=== PATIENT | male | born 1935 | race Caucasian/White ===

== ENCOUNTER 2017-06-14 09:04 | Day surgery (SDC) | payer MEDICARE ==
[~2017-06-14 09:04] MED LIST: Acetaminophen TAB* 325 MG PO PRN; Buffered Lidocaine 0.9% SYRIN* 5 ML/SYR SYRINGE INTRADERM ONE
[2017-06-14] MEDS ORDERED: Cyclopentolate 1% OPTH.SOL* 2 ML BTL ONE (09:07)
[2017-06-14] MEDS ORDERED: Neomycin/Polymy/Dex OPTH.SUSP* MAXITROL 0.1% 5 ML ONE (09:07)
[2017-06-14] MEDS ORDERED: Phenylephrine 2.5% OPTH.SOL* 2 ML BTL ONE (09:07)
[2017-06-14] MEDS ORDERED: Buffered Lidocaine 0.9% SYRIN* 5 ML/SYR SYRINGE ONE (09:07)
[2017-06-14] MEDS ORDERED: Lidocaine 1% MPF* 2 ML VIAL ONE (09:07)
[2017-06-14] MEDS ORDERED: Proparacaine 0.5% OPHTH.SOL* 15 ML BTL ONE (09:07)
[2017-06-14] MEDS ORDERED: acetaZOLAMIDE TAB* 250 MG ONE (09:07)
[2017-06-14] MEDS ORDERED: Povidone Iodine 5% OPTH* 30 ML BTL ONE (09:07)
[2017-06-14] MEDS ORDERED: fentaNYL* 50 MCG/ML 2 ML VIAL (100 MCG VIAL) ONE (10:39)
[2017-06-14] MEDS ORDERED: Midazolam* 1 MG/ML 2 ML VIAL (2 MG) ONE (10:39)
[2017-06-14 11:41] VITALS: BP 159/53
--- NOTE | 2017-06-14 12:01 | OP ---
DATE OF OPERATION: 06/14/2017. DATE OF : 1935. SURGEON: Tarik Sneed M.D. PREOPERATIVE DIAGNOSIS: Cataract right eye. POSTOPERATIVE DIAGNOSIS: Cataract right eye. OPERATIVE PROCEDURE: Phacoemulsification right eye with IOL. PROCEDURE: The patient was brought to the operating room after being given 1/2% Alcaine with epinep hrine drops in the preoperative area. The eye was prepped and draped in the usual sterile fashion. Sterile drape and eyelid speculum were placed. Again, topical 1/2% Alcaine with epinephrine was gi dinora. A paracentesis incision was made at the 9 o'clock position with the No.75 blade. Clear cornea incision 2.2 x 2.2-mm was created at the 12 o'clock position starting at the anterior limbus using the 2.2-mm keratome. The anterior chamber was irrigated with 0.4 mL of 1% non-preservative intracam eral lidocaine and filled with DisCoVisc. A capsulorrhexis was completed using the cystotome and ilana e Utrata forceps. Hydrodissection was performed with balanced salt solution. The lens nucleus was r emoved with the Phacoemulsification handpiece without incident. Cortex was removed with the irrigat ion-aspiration handpiece. The capsular bag was re-inflated using DisCoVisc and an [id number] implant was inserted with the shooter. The irrigation-aspiration handpiece was used to remove all residual DisCoVisc. The eye was refilled with balanced salt solution and the wound checked and found to be watertight. Topical Maxitrol drops were given. [id number]/[facility] #: [id number]
== END 2017-06-14 11:53 | disposition home or self-care (01) ==
LOC: OREAST 09:04
PROVIDERS: ATTEND Specialist
DX: H25.811 Combined forms of age-related cataract, right eye (principal); J45.909 Unspecified asthma, uncomplicated
CPT/HCPCS: A9270-GY; J2250; J3010; V2632

== ENCOUNTER 2017-07-05 11:00 | Day surgery (SDC) | payer MEDICARE ==
[~2017-07-05 11:00] MED LIST changes: +Buffered Lidocaine 0.9% SYRIN* 5 ML/SYR SYRINGE ONE; +Cyclopentolate 1% OPTH.SOL* 2 ML BTL ONE; +Flurbiprofen 0.03% OPTH.SOL* 2.5 ML BTL ONE; +Lidocaine 1% MPF* 2 ML VIAL ONE; +Lidocaine 2% EPI 1:200000 MPF* 20 ML VIAL ONE; +Neomycin/Polymy/Dex OPTH.SUSP* MAXITROL 0.1% 5 ML ONE; +Phenylephrine 2.5% OPTH.SOL* 2 ML BTL ONE; +Povidone Iodine 5% OPTH* 30 ML BTL ONE; +Proparacaine 0.5% OPHTH.SOL* 15 ML BTL ONE; +acetaZOLAMIDE TAB* 250 MG ONE
[2017-07-05] MEDS ORDERED: Midazolam* 1 MG/ML 2 ML VIAL (2 MG) ONE (12:36)
[2017-07-05 13:59] VITALS: BP 186/86
--- NOTE | 2017-07-05 14:38 | OP ---
DATE OF OPERATION: 07/05/2017 - MERGED WITH [facility] DATE OF : 1935. SURGEON: Tarik Sneed M.D. PREOPERATIVE DIAGNOSIS: Cataract left eye. POSTOPERATIVE DIAGNOSIS: Cataract left eye. OPERATIVE PROCEDURE: Phacoemulsification left eye with IOL. DESCRIPTION OF PROCEDURE: The patient was brought to the operating room after being given 1/2% Alcaine with epinephrine drops in the preoperative area. The eye was prepped and draped in the usual sterile fashion. Sterile drape and eyelid speculum were placed. Again, topical 1/2% Alcaine with epinephrine was given. A paracentesis incision was made at the 3 o'clock position with the No.75 blade. Clear cornea incision 2.2 x 2.2-mm was created at the 6 o'clock position starting at the anterior limbus using the 2.2-mm keratome. The anterior chamber was irrigated with 0.4 mL of 1% non-preservative intracameral lidocaine and filled with DisCoVisc. A capsulorrhexis was completed using the cystotome and the Utrata forceps. Hydrodissection was performed with balanced salt solution. The lens nucleus was removed with the Phacoemulsification handpiece without incident. Cortex was removed with the irrigation-aspiration handpiece. The capsular bag was re-inflated using DisCoVisc and an [id number] implant was inserted with the shooter. The irrigation-aspiration handpiece was used to remove all residual DisCoVisc. The eye was refilled with balanced salt solution and the wound checked and found to be watertight. Topical Maxitrol drops were given. [id number]/[facility] #: [id number] [facility]
== END 2017-07-05 14:00 | disposition home or self-care (01) ==
LOC: OREAST 11:00
PROVIDERS: ATTEND Specialist
DX: H26.9 Unspecified cataract (principal)
CPT/HCPCS: A9270-GY; J2250; V2632

== ENCOUNTER 2018-01-12 21:15 | Emergency (ER) | payer MEDICARE ==
[2018-01-12 21:30] VITALS: BP 151/84
--- NOTE | 2018-01-12 21:43 | UC ---
UC General HPI - History of Current Complaint Chief Complaint: UCGI Stated Complaint: CONSTIPATION Time Seen by Provider: 01/12/18 21:42 Pain Intensity: 0 - Allergy/Home Medications Allergies/Adverse Reactions: Allergies Allergy/AdvReac Type Severity Reaction Status Date / Time Adhesive Tape Allergy Rash Verified 01/12/18 21:32 amlodipine Allergy Rash Verified 01/12/18 21:32 ciprofloxacin [From Cipro] Allergy Agitation Verified 01/12/18 21:32 sulfamethoxazole Allergy Rash Verified 01/12/18 21:32 [From Bactrim] trimethoprim [From Bactrim] Allergy Rash Verified 01/12/18 21:32 Hay Fever Allergy Congestion Uncoded 01/12/18 21:32 statins Allergy Muscle Ache Uncoded 01/12/18 21:32 PMH/Surg Hx/FS Hx/Imm Hx - Surgical History Surgical History: Yes Surgery Procedure, Year, and Place: UMBILICAL HERNIA REPAIR - Family History Known Family History: Positive: Hypertension - Social History Alcohol Use: Occasionally Alcohol Amount: 1-2 drinks a week Substance Use Type: None Smoking Status (MU): Never Smoked Tobacco - Immunization History Most Recent Influenza Vaccination: 2014 Physical Exam Vital Signs: Initial Vital Signs Temp 98.3 F 01/12/18 21:26 Pulse 73 01/12/18 21:26 Resp 12 01/12/18 21:26 BP 151/84 01/12/18 21:26 Pulse Ox 100 01/12/18 21:26 Discharge - Discharge Plan Referrals: Tyrone Messina MD [Primary Care Provider] -
--- NOTE | 2018-01-12 22:20 | UC ---
Manuel Pascual Nikita, scribed for Ej Sandoval MD on 01/12/18 at 2211 . Abdominal Pain Male HPI - HPI Summary HPI Summary: This patient is an 82 year old M presenting to [facility] with a chief complaint of constipation and abdominal pain since 3 days ago. However, the patient has been having diarrhea and flatulence every few days since 1.5 months ago. 8 days ago, the patient had pain (7/10) with burping and flatulence at night and in the morning had diarrhea. Days after, he had constipation. The CC is described as a watery and mildly explosive diarrhea. The patient rates the pain 7/10 in severity at its worst. Symptoms aggravated by nothing. Symptoms alleviated by nothing. Patient reports he has been having a normal diet. Patient reports nausea. Patient denies vomiting and fever. Patient reports he is not overdue on his colonoscopy. - History of Current Complaint Chief Complaint: UCGI Stated Complaint: CONSTIPATION Time Seen by Provider: 01/12/18 21:42 Hx Obtained From: Patient Onset/Duration: Sudden Onset, Lasting Days, Still Present Severity Initially: Severe Pain Intensity: 7 Pain Scale Used: 0-10 Numeric Aggravating Factor(s): Nothing Alleviating Factor(s): Nothing Associated Signs And Symptoms: Positive: Other - Patient reports he has been having a normal diet. Patient reports nausea. Patient denies vomiting and fever. - Allergies/Home Medications Allergies/Adverse Reactions: Allergies Allergy/AdvReac Type Severity Reaction Status Date / Time Adhesive Tape Allergy Rash Verified 01/12/18 21:32 amlodipine Allergy Rash Verified 01/12/18 21:32 ciprofloxacin [From Cipro] Allergy Agitation Verified 01/12/18 21:32 sulfamethoxazole Allergy Rash Verified 01/12/18 21:32 [From Bactrim] trimethoprim [From Bactrim] Allergy Rash Verified 01/12/18 21:32 Hay Fever Allergy Congestion Uncoded 01/12/18 21:32 statins Allergy Muscle Ache Uncoded 01/12/18 21:32 PMH/Surg Hx/FS Hx/Imm Hx Cardiovascular History: Hypertension Respiratory History: Asthma - Surgical History Surgical History: Yes Surgery Procedure, Year, and Place: UMBILICAL HERNIA REPAIR - Family History Known Family History: Positive: Hypertension - Social History Alcohol Use: Occasionally Alcohol Amount: 1-2 drinks a week Substance Use Type: None Smoking Status (MU): Never Smoked Tobacco - Immunization History Most Recent Influenza Vaccination: 2014 Review of Systems Constitutional: Other - denies fever Gastrointestinal: Abdominal Pain, Diarrhea, Nausea, Other - constipation; denies vomiting All Other Systems Reviewed And Are Negative: Yes Physical Exam - Summary Physical Exam Summary: VITAL SIGNS: Reviewed. GENERAL: ~Patient is a well-developed and nourished MALE who is lying comfortable in the stretcher. ~Patient is not in any acute respiratory distress. HEAD AND FACE: Normocephalic EYES: PERRLA, EOMI x 2. EARS: Hearing grossly intact. MOUTH: Oropharynx within normal limits. NECK: Supple, trachea is midline, no adenopathy, no JVD, no carotid bruit. CHEST: Symmetric, no tenderness at palpation LUNGS: Clear to auscultation bilaterally. No wheezing or crackles. CVS: Regular rate and rhythm, S1 and S2 present, no murmurs or gallops appreciated. ABDOMEN: Soft, non-tender. Bowel sounds are normal. No abdominal abnormal pulsations. EXTREMITIES: Full ROM in all major joints, no edema, no cyanosis or clubbing. NEURO: Alert and oriented x 3. No acute neurological deficits. Speech is normal and follows commands. SKIN: Dry and warm Triage Information Reviewed: Yes Vital Signs: Initial Vital Signs Temp 98.3 F 01/12/18 21:26 Pulse 73 01/12/18 21:26 Resp 12 01/12/18 21:26 BP 151/84 01/12/18 21:26 Pulse Ox 100 01/12/18 21:26 Abd Pain Male Course/Dx - Course Course Of Treatment: The patient was found to have increased BP in UC. The patient will follow up with PCP for better control of BP. I discussed all the findings and test results with the patient. Patient was instructed to return to the urgent care or go to ER immediately if any of the symptoms return or worsens. Plan of care was discussed with the patient, and patient understands and agrees. All questions were answered to patient satisfaction. There were no further complaints or concerns. - Differential Dx/Clinical Impression Differential Diagnosis/HQI/PQRI: Other - diarrhea and nausea Provider Diagnoses: diarrhea and nausea Discharge - Sign-Out/Discharge Documenting (check all that apply): Discharge - Discharge Plan Condition: Stable Disposition: HOME Referrals: Tyrone Messina MD [Primary Care Provider] - Additional Instructions: FOLLOW UP WITH YOUR PRIMARY CARE PROVIDER WITHIN ONE WEEK FOR HIGH BLOOD PRESSURE NOTED TODAY. RETURN TO URGENT CARE OR THE ED FOR ANY WORSENING OR NEW SYMPTOMS. The documentation as recorded by the Manuel villalobos Nikita accurately reflects the service I personally performed and the decisions made by , Ej Sandoval MD.
[2018-01-13 14:32] LABS: ABS Basophils 0 10^3/ul (0-0.2); ABS Eosinophils 0.2 10^3/ul (0-0.6); ABS Lymphocytes 2.1 10^3/ul (1.0-4.8); ABS Monocytes 0.6 10^3/ul (0-0.8); ABS Neutrophils 3.2 10^3/ul (1.5-7.7); ABS Nucleated RBC 0 10^3/ul; Eosinophil % 3.1 % (0-6); Hematocrit 41 % (42-52); Hemoglobin 13.9 g/dl (14.0-18.0); Lymphocyte % 33.8 % (25-47); Mean Corpuscular HGB Conc 34 g/dl (31-36); Mean Corpuscular Hemoglobin 32 pg (27-31); Mean Corpuscular Volume 95 fL (80-94); Mean Platelet Volume 8.9 um3 (7.4-10.4); Nucleated Red Blood Cells % 0.4; Platelet Count 263 10^3/ul (150-450); Red Blood Count 4.28 10^6/ul (4.0-5.4); Red Cell Distribution Width 14 % (10.5-15); White Blood Count 6.1 10^3/ul (3.5-10.8)
[2018-01-13 14:50] LABS: EGFR Non-African American 92.8 (>60)
--- NOTE | 2018-01-13 16:44 | UC ---
- Progress Note Progress Note: Please call patient and assure all symptoms have resolved---if not please go to emergency room for evaluation of abdomen pain Discharge - Sign-Out/Discharge Documenting (check all that apply): Post-Discharge Follow Up - Discharge Plan Condition: Stable Disposition: HOME Prescriptions: Omeprazole CAP* [Prilosec CAP* 20 MG] 20 mg PO BID #30 cap. Ondansetron TAB* [Zofran 4 MG Tab*] 4 mg PO Q6H PRN #12 tab PRN Reason: Nausea Patient Education Materials: Acute Diarrhea (ED) Referrals: Tyrone Messina MD [Primary Care Provider] - Additional Instructions: FOLLOW UP WITH YOUR PRIMARY CARE PROVIDER WITHIN ONE WEEK FOR HIGH BLOOD PRESSURE NOTED TODAY. RETURN TO URGENT CARE OR THE ED FOR ANY WORSENING OR NEW SYMPTOMS. - Billing Disposition and Condition Condition: STABLE Disposition: HOME
== END 2018-01-12 22:35 | disposition home or self-care (01) ==
LOC: UCEAST 21:15
DX: R19.7 Diarrhea, unspecified (principal); R11.0 Nausea; K59.00 Constipation, unspecified; I10 Essential (primary) hypertension; J45.909 Unspecified asthma, uncomplicated; Z88.1 Allergy status to other antibiotic agents; Z88.2 Allergy status to sulfonamides; Z91.048 Other nonmedicinal substance allergy status
CPT/HCPCS: 36415; 80053; 85025; 86140; 99212; G0463

== ENCOUNTER 2019-02-05 16:11 | Emergency (ER) | payer MEDICARE ==
[2019-02-05 16:43] VITALS: BP 157/65
--- NOTE | 2019-02-05 16:57 | UC ---
Respiratory Complaint HPI - HPI Summary HPI Summary: 83 yo male presents with fatigue and slight dry cough for the last 3 weeks. 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 Pt states his symptoms have not changed. He tried to get an appt with his squad sergeant, but he cannot see him for some time. 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 He denies fever, chills, sinus symptoms, sore throat, SOB, chest pain, abdominal pain, n/v, or rash. No recent weight loss or gain. - History of Current Complaint Chief Complaint: UCRespiratory Stated Complaint: RESP COMPLAINT Time Seen by Provider: 02/05/19 16:56 Onset/Duration: Gradual Onset Severity Initially: Mild Severity Currently: Mild Pain Intensity: 2 Pain Scale Used: 0-10 Numeric Character: Cough: Nonproductive - Allergies/Home Medications Allergies/Adverse Reactions: Allergies Allergy/AdvReac Type Severity Reaction Status Date / Time Adhesive Tape Allergy Rash Verified 02/05/19 16:43 amlodipine Allergy Rash Verified 02/05/19 16:43 ciprofloxacin [From Cipro] Allergy Agitation Verified 02/05/19 16:43 latex Allergy Rash Verified 02/05/19 16:43 sulfamethoxazole Allergy Rash Verified 02/05/19 16:43 [From Bactrim] trimethoprim [From Bactrim] Allergy Rash Verified 02/05/19 16:43 Hay Fever Allergy Congestion Uncoded 02/05/19 16:43 statins Allergy Muscle Ache Uncoded 02/05/19 16:43 Home Medications: Home Medications Albuterol inh POWDER (NF) [Proair Respiclick] 108 mcg IN 02/05/19 [History] Budesonide Flexhaler 180 (NF) [Pulmicort Flexhaler 180 mcg/act (NF)] 180 mcg IN 02/05/19 [History] Hydrocodone/Acetaminophen [[place] 10-325 Tablet] 1 each PO 02/05/19 [History] PMH/Surg Hx/FS Hx/Imm Hx Respiratory History: Asthma - Surgical History Surgical History: Yes Surgery Procedure, Year, and Place[place] [facility] [place] - Family History Known Family History: Positive: Hypertension - Social History Lives: With Family Alcohol Use: Weekly Alcohol Amount: 1-2 drinks a week Substance Use Type: None Smoking Status (MU): Never Smoked Tobacco - Immunization History Most Recent Influenza Vaccination: 2014 Review of Systems All Other Systems Reviewed And Are Negative: Yes Constitutional: Positive: Fatigue Skin: Positive: Negative Eyes: Positive: Negative ENT: Positive: Negative Respiratory: Positive: Cough Cardiovascular: Positive: Negative Gastrointestinal: Positive: Negative Genitourinary: Positive: Negative Motor: Positive: Negative Neurovascular: Positive: Negative Musculoskeletal: Positive: Negative Neurological: Positive: Negative Psychological: Positive: Negative Physical Exam - Summary Physical Exam Summary: GENERAL: NAD. WDWN. No pain distress. SKIN: No rashes, sores, lesions, or open wounds. HEENT: Head: AT/NC Eyes: EOM intact. Conjunctiva clear without inflammation or discharge. Ears: Hearing grossly normal. TMs intact, no bulging, erythema, or edema. Nose: Nasal mucosa pink and moist. NTTP maxillary and frontal sinus. Throat: Posterior oropharynx without exudates, erythema, or tonsillar enlargement. Uvula midline. NECK: Supple. Nontender. No lymphadenopathy. CHEST: CTAB. No r/r/w. No accessory muscle use. Breathing comfortably and in no distress. CV: Without m/r/g. Pulses intact. Cap refill <2seconds NEURO: Alert. PSYCH: Age appropriate behavior. Triage Information Reviewed: Yes Vital Signs: Initial Vital Signs Temp 98.7 F 02/05/19 16:30 Pulse 76 02/05/19 16:30 Resp 18 02/05/19 16:30 BP 157/65 02/05/19 16:30 Pulse Ox 98 02/05/19 16:30 Laboratory Tests 02/05/19 17:17 Influenza A (Rapid) Negative Influenza B (Rapid) Negative Vital Signs Reviewed: Yes Respiratory Course/Dx - Course Course Of Treatment: CXR: IMPRESSION: #. No evidence for acute intrathoracic disease. EKbpm Sinus vicente with one APC. No ST changes as read by Dr. Rowan POC flu negative. At this time, I am unsure the cause of his symptoms. At pt's request, will draw for CBC, CMP, TSH, Vitamin D, and Vitamin B12. He wishes for these lab results to be forwarded to his PCP for review at their next appointment. - Differential Dx/Diagnosis Provider Diagnosis: Fatigue Discharge - Sign-Out/Discharge Documenting (check all that apply): Patient Departure All imaging exams completed and their final reports reviewed: Yes - Discharge Plan Condition: Stable Disposition: HOME Patient Education Materials: Fatigue (ED) Referrals: Tyrone Messina MD [Primary Care Provider] - As Soon As Possible Additional Instructions: If you develop a fever, shortness of breath, chest pain, new or worsening symptoms - please call your PCP or go to the ED. Please schedule a follow up with your Primary Doctor to review lab work and for further evaluation of your symptoms. - Billing Disposition and Condition Condition: STABLE Disposition: Home
[2019-02-05 17:29] LABS: Influenza A Molecular NEGATIVE (Negative); Influenza B Molecular NEGATIVE (Negative)
[2019-02-06 10:54] LABS: ABS Basophils 0 10^3/ul (0-0.2); ABS Eosinophils 0.1 10^3/ul (0-0.6); ABS Lymphocytes 1.5 10^3/ul (1.0-4.8); ABS Monocytes 0.4 10^3/ul (0-0.8); ABS Neutrophils 3.9 10^3/ul (1.5-7.7); ABS Nucleated RBC 0 10^3/ul; Hematocrit 42 % (36-46); Hemoglobin 14.2 g/dL (14.0-18.0); Mean Corpuscular HGB Conc 34 g/dL (31-36); Mean Corpuscular Hemoglobin 32 pg (27-31); Mean Corpuscular Volume 96 fL (80-94); Mean Platelet Volume 8.9 fL (7.4-10.4); Nucleated Red Blood Cells % 0; Platelet Count 304 10^3/uL (150-450); Red Blood Count 4.39 10^6 /uL (4.18-5.48); Red Cell Distribution Width 14 % (10.5-15)
[2019-02-06 10:58] LABS: Albumin 4.3 g/dL (3.2-5.2); Calcium 9.9 mg/dL (8.6-10.3); Potassium 4.4 mmol/L (3.5-5.0); Total Bilirubin 0.9 mg/dL (0.2-1.0)
[2019-02-06 11:04] LABS: BUN/Creatinine Ratio 13.7 (8-20); EGFR African American 124.5 (>60); EGFR Non-African American 102.9 (>60); Globulin 2.2 g/dL (2-4); Total Protein 6.5 g/dL (6.4-8.9)
[2019-02-06 11:22] LABS: TSH (Thyroid Stimulating Horm) 1.38 mcIU/mL (0.34-5.60)
--- NOTE | 2019-02-06 16:47 | UC ---
- Progress Note Progress Note: Lab work form 02/05/2019 reviewed. All labs within normal limits. No change in POC. He should follow up with his primary care provider as previously directed for further evaluation of his symptoms. Course/Dx - Diagnoses Provider Diagnoses: Fatigue Discharge - Sign-Out/Discharge Documenting (check all that apply): Post-Discharge Follow Up All imaging exams completed and their final reports reviewed: Yes - Discharge Plan Condition: Stable Disposition: HOME Patient Education Materials: Fatigue (ED) Referrals: Tyrone Messina MD [Primary Care Provider] - As Soon As Possible Additional Instructions: If you develop a fever, shortness of breath, chest pain, new or worsening symptoms - please call your PCP or go to the ED. Please schedule a follow up with your Primary Doctor to review lab work and for further evaluation of your symptoms. - Billing Disposition and Condition Condition: STABLE Disposition: Home
== END 2019-02-05 18:05 | disposition home or self-care (01) ==
LOC: UCEAST 16:11
DX: R53.83 Other fatigue (principal); R05 Cough; R06.02 Shortness of breath; R00.1 Bradycardia, unspecified; J45.909 Unspecified asthma, uncomplicated; Z88.1 Allergy status to other antibiotic agents; Z91.040 Latex allergy status; Z88.2 Allergy status to sulfonamides; Z88.8 Allergy status to other drugs, medicaments and biological substances; Z91.048 Other nonmedicinal substance allergy status
CPT/HCPCS: 36415; 71046; 80053; 82306; 82607; 84443; 85025; 93005; 99211; G0463

== ENCOUNTER 2019-03-05 15:15 | Observation (INO) | payer MEDICARE ==
--- NOTE | 2019-03-05 15:34 | ED ---
HPI Cardiac - HPI Summary HPI Summary: Patient is a 84 y/o M presenting to ED with complaints of palpitations, chest pain, and diaphoresis. He states that today at around 1330, he was having a phone conversation when he began to feel diaphoretic and experienced palpitations, stating that his pulse felt "irregular". , Carlene, who is present in the room, noted the patient to appear flushed at the time. Patient took his BP three time and states that the highest measurement was 181/111. Afterwards, he began to experience intermittent, mild, mid sternal chest pain. Pain is aggravated with deep breaths, and he notes that he started to burp after chest pain onset. 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 Carlin April 22, 2019. He states that he has been feeling generally fatigued for the past three months, stating that he has been having congestion, URI Sx after going on a trip to [place]. He also makes note of a syncopal episode five days ago and states that the chest congestion finally resolved two days ago. PMHx of HTN, asthma, cataracts. PSHx of bilateral cataracts, umbilical hernia repair. FMHx of HTN. Patient has never smoked tobacco, endorses weekly alcohol usage, denies substance usage. On triage , pain is denied, nothing is ntoed to aggravate/alleviate Sx. Home medications and allergies are reviewed. - History of Current Complaint Stated Complaint: CHEST PAIN HIGH BLOOD PRESSURE PER PT Time Seen by Provider: 03/05/19 15:18 Hx Obtained From: Patient Onset/Duration: Started Hours Ago - chest pain, palpitations, diaphoresis onset 1330 today, Started Days Ago - syncope five days ago, Started Weeks Ago - fatigue, congestion, URI Sx for past three months, resolved two days ago, Resolved - fatigue, congestion, URI Sx for past three months, resolved two days ago; chest pain resolved Timing: Intermittent - chest pain, Lasting Weeks - fatigue, congestion, URI Sx for past three months, resolved two days ago Initial Severity: Mild Current Severity: None Pain Intensity: 0 Pain Scale Used: 0-10 Numeric Chest Pain Location: Mid Sternal Character: Irregular Aggravating Factor(s): Deep Breaths Alleviating Factor(s): Nothing Associated Signs and Symptoms: Positive: Chest Pain, Diaphoresis, Palpitations, Other: - syncope, congestion, fatigue, burping - Allergy/Home Medications Allergies/Adverse Reactions: Allergies Allergy/AdvReac Type Severity Reaction Status Date / Time Adhesive Tape Allergy Rash Verified 02/05/19 16:43 amlodipine Allergy Rash Verified 02/05/19 16:43 ciprofloxacin [From Cipro] Allergy Agitation Verified 02/05/19 16:43 latex Allergy Rash Verified 02/05/19 16:43 sulfamethoxazole Allergy Rash Verified 02/05/19 16:43 [From Bactrim] trimethoprim [From Bactrim] Allergy Rash Verified 02/05/19 16:43 Hay Fever Allergy Congestion Uncoded 02/05/19 16:43 statins Allergy Muscle Ache Uncoded 02/05/19 16:43 Home Medications: Home Medications HYDROcodone/ACETAMIN 5-325 MG* [[place] 5-325 TAB*] 1.5 tab PO BEDTIME 03/05/19 [ History Confirmed 03/05/19] Levalbuterol Tartrate [Levalbuterol Tartrate Hfa] 2 puff INH Q4H PRN 03/05/19 [ History Confirmed 03/05/19] Pumpkin Seed Oil/Saw [place] [Saw [place] 160 mg Softgel] 2 - 3 tab PO DAILY 03/05/19 [History Confirmed 03/05/19] PMH/Surg Hx/FS Hx/Imm Hx Endocrine/Hematology History: Denies: Hx Diabetes Cardiovascular History: Reports: Hx Hypertension - ok now Denies: Hx Pacemaker/ICD, Other Cardiovascular Problems/Disorders Respiratory History: Reports: Hx Asthma - prn inhaler, Denies: Other Respiratory Problems/Disorders GI History: Denies: Other GI Disorders History: Denies: Hx Renal Disease Musculoskeletal History: Denies: Hx Osteoporosis, Other Musculoskeletal History Sensory History: Reports: Hx Cataracts - kady Denies: Hx Contacts or Glasses, Hx Glaucoma, Hx Hearing Aid Opthamlomology History: Reports: Hx Cataracts - kady Denies: Hx Contacts or Glasses, Hx Glaucoma Neurological History: Denies: Other Neuro Impairments/Disorders Psychiatric History: Denies: Hx Panic Disorder - Surgical History Surgery Procedure, Year, and Place: kady [place]acts 2016, [facility] [place] UMBILICAL HERNIA REPAIR Hx Anesthesia Reactions: Yes - mental issues with sedation Infectious Disease History: Denies: Traveled Outside the [place] in Last 30 Days - Family History Known Family History: Positive: Hypertension - Social History Alcohol Use: Weekly Alcohol Amount: 1-2 drinks a week Substance Use Type: Reports: None Smoking Status (MU): Never Smoked Tobacco Review of Systems Constitutional: Other - POSITIVE - CONGESTION, BURPING Positive: Fatigue, Skin Diaphoresis Positive: Palpitations, Chest Pain Positive: Syncope All Other Systems Reviewed And Are Negative: Yes Physical Exam - Summary Physical Exam Summary: Appearance: Well-appearing, Well-nourished, lying in bed comfortably Skin: Warm, dry, no obvious rash Eyes: sclera anicteric, no conjunctival pallor ENT: mucous membranes moist, pharynx appears normal Neck: Supple, nontender Respiratory: Clear to auscultation, no signs of respiratory distress Cardiovascular: Normal S1, S2. No murmurs. Normal distal pulses in tibial and radial bilaterally. Abdomen: Soft, nontender, normal active bowel sounds present Musculoskeletal: Normal, Strength/ROM Intact Neurological: A&Ox3, awake and alert, mentation is normal, speech is fluent and appropriate Psychiatric: affect is normal, does not appear anxious or depressed Triage Information Reviewed: Yes Vital Signs On Initial Exam: Initial Vitals Temp Pulse Resp BP Pulse Ox 98.8 F 79 17 175/86 100 03/05/19 15:24 03/05/19 15:24 03/05/19 15:24 03/05/19 15:24 03/05/19 15:24 Vital Signs Reviewed: Yes Diagnostics - Laboratory Result Diagrams: 03/05/19 15:50 03/05/19 15:50 Lab Statement: Any lab studies that have been ordered have been reviewed, and results considered in the medical decision making process. - Radiology CHEST X-RAY Radiology Interpretation Completed By: Radiologist Summary of Radiographic Findings: IMPRESSION: No active cardiopulmonary disease is noted. THIS REPORT WAS REVIEWED BY DR. ORTEGA. - EKG 1523 Cardiac Rate: NL - RATE OF 80 BPM EKG Rhythm: Sinus Rhythm Summary of EKG Findings: NSR at 80 BPM, P waves, QRS complex, and T waves are within normal limits, T waves and intervals are normal, no ischemic changes. This is a normal EKG. Re-Evaluation - Re-Evaluation First Eval Re-Evaluation Time: 18:00 Comment: Results of labs and tests were discussed with the patient, he is agreeable with admission. Disposition - Course Course Of Treatment: Patient is a 84 y/o M presenting to ED with complaints of palpitations, chest pain, and diaphoresis. He states that today at around 1330, he was having a phone conversation when he began to feel diaphoretic and experienced palpitations, stating that his pulse felt "irregular". reported he appeared flushed. Afterwards, he began to experience intermittent, mild, mid sternal chest pain. Pain is aggravated with deep breaths, and he notes that he started to burp after chest pain onset. He additionally notes a recent syncopal episode, fatigue, and congestion. Physical exam is normal. EKG showed NSR at 80 BPM, P waves, QRS complex, and T waves are within normal limits , T waves and intervals are normal, no ischemic changes. This is a normal EKG. CXR IMPRESSION: No active cardiopulmonary disease is noted. Labs showed Hgb 13.9, Hct 40, MCV 96, MCH 33, MPV 7.3, glucose 170, total protein 6.2, trop 0. UA was negative. Patient's case was discussed with Dr. Lyons, Dr. Lyons accepts for admission. Results of labs and tests were discussed with the patient , he is agreeable with admission. - Diagnoses Provider Diagnoses: Chest pain, Near syncope - Physician Notifications Discussed Care Of Patient With: Rosetta Lyons Time Discussed With Above Provider: 17:50 Instructed by Provider To: Other - Patient's case was discussed with Dr. Lyons , Dr. Lyons accepts for admission. Discharge - Sign-Out/Discharge Documenting (check all that apply): Patient Departure - admit Patient Received Moderate/Deep Sedation with Procedure: No - Discharge Plan Condition: Stable Disposition: ADMITTED TO [facility] - Billing Disposition and Condition Condition: STABLE Disposition: Admitted to [facility] - Attestation Statements Document Initiated by Scribe: Yes Documenting Scribe: CONY MART Provider For Whom Vicente is Documenting (Include Credential): DOREEN ORTEGA MD Scribe Attestation: CONY Pascual, scribed for DOREEN ORTEGA MD on 03/05/19 at 2056. Scribe Documentation Reviewed: Yes Provider Attestation: The documentation as recorded by the CONY villalobos accurately reflects the service I personally performed and the decisions made by DOREEN gray MD Status of Scribe Document: Viewed
[2019-03-05 15:56] LABS: ABS Basophils 0.1 10^3/ul (0-0.2); ABS Eosinophils 0.1 10^3/ul (0-0.6); ABS Monocytes 0.4 10^3/ul (0-0.8); ABS Neutrophils 4.1 10^3/ul (1.5-7.7); Eosinophil % 1.7 %; Hematocrit 40 % (42-52); Hemoglobin 13.9 g/dL (14.0-18.0); Lymphocyte % 29.6 %; Mean Corpuscular HGB Conc 35 g/dL (31-36); Mean Corpuscular Hemoglobin 33 pg (27-31); Mean Corpuscular Volume 96 fL (80-94); Mean Platelet Volume 7.3 fL (7.4-10.4); Nucleated Red Blood Cells % 0.1; Platelet Count 287 10^3/uL (150-450); Red Cell Distribution Width 14 % (10.5-15); White Blood Count 6.7 10^3/uL (3.5-10.8)
[2019-03-05 16:12] LABS: Calcium 9.5 mg/dL (8.6-10.3); Potassium 3.9 mmol/L (3.5-5.0); Total Bilirubin 0.9 mg/dL (0.2-1.0)
[2019-03-05 16:18] LABS: Albumin/Globulin Ratio 1.8 (1-3); BUN/Creatinine Ratio 12.1 (8-20); EGFR African American 96.3 (>60); EGFR Non-African American 79.6 (>60); Globulin 2.2 g/dL (2-4); Total Protein 6.2 g/dL (6.4-8.9)
[2019-03-05 17:39] LABS: Urine Appearance Cloudy; Urine Bilirubin Negative (Negative); Urine Blood Negative (Negative); Urine Color Yellow; Urine Glucose Negative (Negative); Urine Ketones Negative (Negative); Urine Nitrite Negative (Negative); Urine Protein Negative (Negative); Urine Urobilinogen Negative (Negative)
[2019-03-05 19:40] LABS: Folate 4.49 ng/mL (>3.99)
[2019-03-05] MEDS ORDERED: Acetaminophen TAB* 325 MG PO PRN (20:29)
[2019-03-05] MEDS ORDERED: Ondansetron INJ* 2 MG/ML VIAL IV PRN (20:29)
[2019-03-05] MEDS ORDERED: Chlorpheniramine Maleate TAB* 4 MG PO PRN (20:31)
[2019-03-05] MEDS ORDERED: Levalbuterol HFA INHALER* 1 PUFF MDI INH PRN (20:31)
[2019-03-05] MEDS ORDERED: HYDROcodone/ACETAMIN 5-325 MG* 1 TAB PO SCH (21:00)
[2019-03-05] MEDS ORDERED: Enoxaparin(*) 40 MG/0.4 ML SYR SUBCUT SCH (21:00)
--- NOTE | 2019-03-05 22:25 | HP ---
CC: Dr. Santiago; Dr. Carlin * ADMISSION HISTORY AND PHYSICAL: DATE OF ADMISSION: 03/05/19 PRIMARY CARE PROVIDER: Dr. Santiago. HEALTH CARE PROXY: His . CODE STATUS: Full. SOURCE OF INFORMATION: History obtained from interview with the patient and his . RELIABILITY: Good. CHIEF COMPLAINT: Chest discomfort/indigestion and feeling of faintness. HISTORY OF PRESENT ILLNESS: This is an 84-year-old man recently seen by Dr. Santiago on 02/27/19 after presenting with fatigue and cough and weakness, which started approximately 2 months prior to his presentation and began with viral respiratory tract infection, had improved; however, recurred approximately 4 weeks prior after visiting his family who were all sick with viral respiratory infections. He was also seen by Dr. Garcia who had prescribed him cefdinir for sinusitis as well as 2 inhalers Asmanex and a rescue inhaler, which he had not been using since it caused palpitations. He also went to urgent care in the interim and had an EKG that showed PVCs. On the 02/27/19, he reported to Dr. Santiago that he had an episode of near syncope while strolling around his garden and reported at that time he did not lose consciousness and he had taken a nap and felt better. In the interim since on 02/27/19, he was walking with his and again experienced an episode where he fell from a walking path and did not understand how he had done it. They reasoned in retrospect that perhaps he had been feeling faint causing him to miss a step and fall in to the mud, although again no reported syncopal episode, no chest pain or discomfort. Today , while talking on the telephone, he started to experience a sensation and felt "a little faint." About 30 minutes later, he started to feel an "arrhythmia" and according to his looked "flushed." He checked his blood pressure 3 times with a maximum systolic at 180 as well as pressure in his temples as well as a sensation of feeling indigestion. He reported a pain described as "mild discomfort" under his heart that was worse with breathing and decided to come to the emergency room. He reports the sensation of chest discomfort lasted about 20 minutes, but was on and off and only present with deep breathing. He reports that it is still present "a tiny bit." After this sensation of indigestion, he started to belch without improvement. He does note that he was eating after this episode of discomfort and arrhythmia began after talking on the phone. He did not ambulate well after the initiation of this discomfort and still has no association with ambulation. He feels he has been having arrhythmia on and off for at least 3 weeks. At this time, he does still have slight chest discomfort, left sternal wall nonradiating with deep breathing. PAST MEDICAL HISTORY: Includes: 1. Asthma. 2. Cataracts. 3. Umbilical hernia repair. 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 The fistula was at exam under anesthesia, but no surgery. 5. History of high blood pressure improved, diet controlled on a plant based diet. 6. Chronic pain in his back. HOME MEDICATIONS: Include: 1. Chlorpheniramine 2 tabs in the evening as needed. 2. Pumpkin seed oil. 3. Saw palmetto soft gel. 4. Levalbuterol tartrate 2 puffs every 4 hours as needed. 5. [place] 5/325, 1.5 tabs at bedtime. 6. Pulmicort 4 puffs inhaled twice daily. ALLERGIES: ADHESIVE TAPE, AMLODIPINE, CIPROFLOXACIN, LATEX, BACTRIM, TRIMETHOPRIM, hay fever and STATINS. 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 No tobacco. Drinks 1-1/2 glass of wine per evening. He is on a plant based diet and has lost about 20 pounds over the last 2 years. FAMILY HISTORY: Significant for father with hyperlipidemia and mother with breast cancer. REVIEW OF SYSTEMS: As per HPI including fatigue, URI symptoms, sensation of irregular heart rate, high blood pressure, episode of diarrhea 2 months prior. Recent trip to [place] in December. PHYSICAL EXAMINATION GENERAL: A well-appearing man younger than his stated age, sitting up in bed, interactive, pleasant, in no apparent distress. VITAL SIGNS: When seen in the emergency room, systolics ranging from 167 to 190 , diastolic 87 when seen by this author, heart rate 86, respiratory rate is 16. T- max 98.8. HEENT: Oropharynx is clear. He has moist mucous membranes. Sclerae are anicteric. NECK: He has non-elevated JVD. Has no supraclavicular or cervical lymphadenopathy. LUNGS: Clear throughout. HEART: Has regular rate and rhythm. He has slight 2/6 systolic ejection murmur in the right upper sternal border. ABDOMEN: Soft, nontender. EXTREMITIES: Warm and well perfused. He has trace bilateral lower extremity edema equal and bilaterally. NEUROLOGIC: He is alert and oriented x3. His cranial nerves II through XII are intact. No apparent anxiety, agitation, or depression. LABORATORY DATA/DIAGNOSTIC STUDIES: Labs reviewed. Hemoglobin 13.9, white blood cells 6.7, platelets 287. BUN 11, creatinine 0.9, glucose is 170. Troponin I is 0.00 and 0.02. Data reviewed. Chest x-ray, no active cardiopulmonary disease. EKG. Normal sinus rhythm. Normal limit access. Good R-wave progression. One PVC, the last beat in his rhythm strip. Flattening of his T-waves in aVL. ASSESSMENT AND PLAN: This is an 84-year-old man with past medical history of diet- controlled high blood pressure, presenting with constellation of symptoms including several months fatigue, URI symptoms and chest discomfort in the setting of recent episode of near syncope and at least 1 episode potentially 2 occasions in the last several weeks. 1. Chest discomfort. Two negative troponins and a fleeting episode make this an isolation seem nonurgent; however, with one recent episode of near syncope and another episode of questionable near syncope while walking over the weekend , falling off the path, I think this deserves further inpatient workup. First step would be cardiac stress test to rule out ischemia in the setting of chest pain. The patient has identified sensation of arrhythmia and does have PVCs on multiple occasions may account for this. Sensation may benefit from Holter as an outpatient for now. Monitor on telemetry. I do not appreciate any diastolic murmurs or high- grade murmurs that would warrant an urgent echocardiogram. He did travel from [place] several months prior raises a specter of a PE; however, has not had any dyspnea or chest pain other than acute events as described above. For that reason, we will not investigate pulmonary clots, pulmonary embolism further at this time although should remain on the differential. 2. High blood pressure. Suspect worsened in the setting of ER visit. We will monitor after transfer to the floor. If remains elevated, we will restart ramipril, which the patient has tolerated in the past. Elevated glucose, add on Hemoglobin A1c. 3. FEN: The patient is requesting no onions or garlic as well as vegetarian diet when able to eat. 4. DVT prophylaxis: Lovenox. [id number]/[facility] #: [id number] JOSHUA
[2019-03-05] MEDS ORDERED: hydrOXYzine HCL TAB* 25 MG PO ONE (22:37)
[2019-03-05] MEDS: Mometasone 220 MCG MDI INH SCH (23:34)
[2019-03-06] MEDS: Mometasone 220 MCG MDI INH SCH (07:14)
[2019-03-06] MEDS ORDERED: Regadenoson* 0.4 MG/5 ML SYRINGE ONE (09:51)
[2019-03-06 10:14] VITALS: BP 154/65
--- NOTE | 2019-03-06 16:33 | DS ---
CC: Dr. Santiago * DISCHARGE SUMMARY: DATE OF ADMISSION: 03/05/19 DATE OF DISCHARGE: 03/06/19 PRIMARY CARE PROVIDER: Dr. Santiago. SENIOR LINUX ENGINEER: To be established with Dr. Carlin. PRINCIPLE DIAGNOSIS: Syncope/near syncope of unclear cause - negative stress test. SECONDARY DIAGNOSES: 1. Asthma. 2. Chronic back pain. DISCHARGE MEDIATIONS: 1. Chlorpheniramine 2 tablets p.o. q.h.s. p.r.n. 2. Pumpkin seed oil. 3. Saw palmetto soft gel. 4. Xopenex 2 puffs q.4 hours p.r.n. shortness of breath. 5. [place] 5/325 1.5 tablets p.o. q.h.s. 6. Pulmicort 4 puffs inhaled twice daily. 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 Due to the symptoms, the patient was admitted for cardiac evaluation. He was monitored on telemetry overnight. He did develop bradycardia while sleeping. The lowest his heart rate went was 38. He had frequent PACs noted on telemetry; however, the patient did not have any symptoms consistent with what he has had prior. The patient then underwent an exercise nuclear stress test. The patient's stress test did not reveal any fixed or reversible perfusion defects. It is unclear what was causing the patient's symptoms. He felt as though he was an arrhythmia. We did not document anything more significant than PACs or an occasional PVC while in the hospital. I think it would be beneficial to the patient to have an event monitor placed for longer term monitoring where he can correlate this with any symptoms. Unfortunately, the patient needs to be seen by Cardiology before this can be ordered. The patient already has an appointment scheduled with Dr. Carlin for 03/23/19. Unfortunately, I am unable to move that appointment up any sooner. The patient has been instructed to return to the emergency room if he has any recurrent symptoms. PHYSICAL EXAMINATION: On the day of discharge, the patient is awake, alert, oriented, sitting up in the bed, in no acute distress. Cardiac exam reveals a normal S1 and S2 with a regular rate and rhythm. His lungs are are clear. Abdomen is soft, nontender, nondistended. Musculoskeletal: The patient moves all 4 extremities symmetrically. FOLLOWUP CONCERNS: The patient is being discharged home today, 03/06/19. Activity level is as tolerated. Diet is heart-healthy. CONDITION ON DISCHARGE: Stable. TIME SPENT: 35 minutes were spent discharging this patient. [id number]/[facility] #: [id number] MTDD
== END 2019-03-06 13:55 | disposition home or self-care (01) ==
LOC: ED 15:15 → MEDTELE 20:22
PROVIDERS: ADMIT Internal Medicine; ATTEND Hospitalist
DX: R55 Syncope and collapse (principal); J45.909 Unspecified asthma, uncomplicated; M54.9 Dorsalgia, unspecified; I10 Essential (primary) hypertension; R53.83 Other fatigue; R00.2 Palpitations; R07.9 Chest pain, unspecified
CPT/HCPCS: 36415; 71046; 78452; 80053; 81003; 82607; 82746; 83036; 84484; 85025; 85610; 93005; 93017; 99284; A9270-GY; A9502; G0378; J1650; J2785

== ENCOUNTER 2019-04-20 09:47 | Emergency (ER) | payer MEDICARE ==
[2019-04-20 09:57] VITALS: BP 177/76
--- NOTE | 2019-04-20 10:15 | UC ---
UC General HPI - HPI Summary HPI Summary: This patient is a 84-year-old male who presents to the urgent care with chief complaint of itching in his anus. He is be having the symptoms for the last 2 weeks. He has seen his anus urgent and there was no findings. Last night his symptoms worsen therefore he decided to come to the urgent care for further assessment. Patient denies any fever, denies any pain, denies any bleeding. - History of Current Complaint Chief Complaint: UCGU Stated Complaint: PERSONAL Time Seen by Provider: 04/20/19 09:57 Hx Obtained From: Patient Onset/Duration: Gradual Onset Timing: Constant Onset Severity: Mild Current Severity: Moderate Pain Intensity: 8 - Allergy/Home Medications Allergies/Adverse Reactions: Allergies Allergy/AdvReac Type Severity Reaction Status Date / Time Adhesive Tape Allergy Rash Verified 04/20/19 09:55 amlodipine Allergy Rash Verified 04/20/19 09:55 ciprofloxacin [From Cipro] Allergy Agitation Verified 04/20/19 09:55 latex Allergy Rash Verified 04/20/19 09:55 sulfamethoxazole Allergy Rash Verified 04/20/19 09:55 [From Bactrim] trimethoprim [From Bactrim] Allergy Rash Verified 04/20/19 09:55 Hay Fever Allergy Congestion Uncoded 04/20/19 09:55 statins Allergy Muscle Ache Uncoded 04/20/19 09:55 PMH/Surg Hx/FS Hx/Imm Hx Previously Healthy: Yes Cardiovascular History: Hypertension Neurological History: Other - Syncope - Surgical History Surgical History: Yes Surgery Procedure, Year, and Place: kady cataracts 2016, [facility] – [place]. UMBILICAL HERNIA REPAIR - Family History Known Family History: Positive: Hypertension - Social History Alcohol Use: Weekly Alcohol Amount: 1-2 drinks a week Substance Use Type: None Smoking Status (MU): Never Smoked Tobacco - Immunization History Most Recent Influenza Vaccination: 2014 Review of Systems All Other Systems Reviewed And Are Negative: Yes Constitutional: Positive: Negative Skin: Positive: Other - anal itching Eyes: Positive: Negative ENT: Positive: Negative Respiratory: Positive: Negative Cardiovascular: Positive: Negative Gastrointestinal: Positive: Negative Genitourinary: Positive: Negative Motor: Positive: Negative Neurovascular: Positive: Negative Musculoskeletal: Positive: Negative Neurological: Positive: Negative Psychological: Positive: Negative Is Patient Immunocompromised?: No Physical Exam - Summary Physical Exam Summary: VITAL SIGNS: Reviewed. GENERAL: Patient is a well developed and nourished male who is lying comfortable in the stretcher. Patient is not in any acute respiratory distress. HEAD AND FACE: No signs of trauma. No ecchymosis, hematomas or skull depressions. No sinus tenderness. EYES: PERRLA, EOMI x 2, No injected conjunctiva, no nystagmus. EARS: Hearing grossly intact. Ear canals and tympanic membranes are within normal limits. MOUTH: Oropharynx within normal limits. NECK: Supple, trachea is midline, no adenopathy, no JVD, no carotid bruit, no c- spine tenderness, neck with full ROM. CHEST: Symmetric, no tenderness at palpation LUNGS: Clear to auscultation bilaterally. No wheezing or crackles. CVS: Regular rate and rhythm, S1 and S2 present, no murmurs or gallops appreciated. ABDOMEN: Soft, non-tender. No signs of distention. No rebound no guarding, and no masses palpated. Bowel sounds are normal. Rectal exam: Normal sphincter tone, no rashes, no ecchymosis, no lesions, no bleeding. EXTREMITIES: FROM in all major joints, no edema, no cyanosis or clubbing. NEURO: Alert and oriented x 3. No acute neurological deficits. Speech is normal and follows commands. SKIN: Dry and warm Triage Information Reviewed: Yes Appearance: Well-Appearing Vital Signs: Initial Vital Signs Temp 98.3 F 04/20/19 09:50 Pulse 95 04/20/19 09:50 Resp 18 04/20/19 09:50 BP 177/76 04/20/19 09:50 Pulse Ox 99 04/20/19 09:50 Vital Signs Reviewed: Yes Course/Dx - Course Course Of Treatment: The physical exam is found to be within normal limits. At this point I didn't find any etiology for the rectal itching. I would place the patient Seizing. He was strongly recommended to follow-up with his primary care physician and his correctional officer sergeant in the next 2 days for further workup and management. Was also recommended to take Benadryl as needed also given a prescription for Capsasin which is usually prescribed for different causes of a no itching. Visual understands and agrees. - Diagnoses Provider Diagnosis: Anal pruritus Discharge - Sign-Out/Discharge Documenting (check all that apply): Patient Departure All imaging exams completed and their final reports reviewed: No Studies - Discharge Plan Condition: Stable Disposition: HOME Prescriptions: Capsaicin 0.025% CREAM* [Zostrix 0.025% CREAM*] 1 applic TOPICAL TID #1 tube Patient Education Materials: Anal Itching (ED) Referrals: Virginia Santiago MD [Primary Care Provider] - Additional Instructions: Apply medication as indicated. Use Benadryl as needed for itching. Follow-up with his correctional officer sergeant in the primary care physician in the next 2 days. - Billing Disposition and Condition Condition: STABLE Disposition: Home
== END 2019-04-20 10:22 | disposition home or self-care (01) ==
LOC: UCEAST 09:47
DX: L29.0 Pruritus ani (principal); I10 Essential (primary) hypertension; Z88.2 Allergy status to sulfonamides; Z91.040 Latex allergy status
CPT/HCPCS: 99212; G0463

== ENCOUNTER 2019-05-31 22:53 | Observation (INO) | payer MEDICARE ==
[2019-05-31] MEDS ORDERED: Labetalol IV* 5 MG/ML 20 ML VIAL IV PUSH ONE (23:08)
--- NOTE | 2019-05-31 23:13 | ED ---
Neurological HPI - HPI Summary HPI Summary: This patient is an 84 year old male accompanied by his presenting to [facility] with a chief complaint of feeling disoriented since 2 hours ago. The patient states the symptoms started while eating at his mother in laws house. He drove home from the house when the patient told his he said he felt disoriented. He sat with his for an hour and a half and he continued to feel disoriented. He could not remember his recent work. He reports a headache. He denies vomiting. His only medical Hx is HTN. The patient states he began to experience aphasia, saying he felt inarticulate. The patients blood pressure was 213/105 at triage. - History of Current Complaint Chief Complaint: EDAltMentalStatus Stated Complaint: POSS STROKE PER PT Hx Obtained From: Patient Onset/Duration: Started hours ago Current Severity: Mild Seizure Severity: Mild Pain Intensity: 2 Pain Scale Used: 0-10 Numeric - Additional Pertinent History Primary Care Physician: JAQUELIN - Allergy/Home Medications Allergies/Adverse Reactions: Allergies Allergy/AdvReac Type Severity Reaction Status Date / Time Adhesive Tape Allergy Rash Verified 05/31/19 23:22 amlodipine Allergy Rash Verified 05/31/19 23:22 ciprofloxacin [From Cipro] Allergy Agitation Verified 05/31/19 23:22 latex Allergy Rash Verified 05/31/19 23:22 sulfamethoxazole Allergy Rash Verified 05/31/19 23:22 [From Bactrim] trimethoprim [From Bactrim] Allergy Rash Verified 05/31/19 23:22 Hay Fever Allergy Congestion Uncoded 05/31/19 23:22 statins Allergy Muscle Ache Uncoded 05/31/19 23:22 PMH/Surg Hx/FS Hx/Imm Hx Endocrine/Hematology History: Denies: Hx Diabetes Cardiovascular History: Reports: Hx Hypercholesterolemia, Hx Hypertension - ok now Denies: Hx Angina, Hx Coronary Artery Disease, Hx Myocardial Infarction, Hx Pacemaker/ICD, Hx Valvular Heart Disease, Other Cardiovascular Problems/ Disorders Respiratory History: Reports: Hx Asthma - prn inhaler, Denies: Hx Chronic Obstructive Pulmonary Disease (COPD), Other Respiratory Problems/Disorders GI History: Denies: Other GI Disorders History: Denies: Hx Chronic Renal Failure, Hx Renal Disease Musculoskeletal History: Denies: Hx Osteoporosis, Other Musculoskeletal History Sensory History: Reports: Hx Cataracts - kady Denies: Hx Contacts or Glasses, Hx Glaucoma, Hx Hearing Aid Opthamlomology History: Reports: Hx Cataracts - kady Denies: Hx Contacts or Glasses, Hx Glaucoma Neurological History: Denies: Other Neuro Impairments/Disorders Psychiatric History: Denies: Hx Panic Disorder - Surgical History Surgery Procedure, Year, and Place: kady cataracts 2017, [facility] [place]. UMBILICAL HERNIA REPAIR Hx Anesthesia Reactions: Yes - mental issues with sedation Infectious Disease History: No Infectious Disease History: Denies: Hx Clostridium Difficile, Hx Hepatitis, Hx Human Immunodeficiency Virus (HIV), Hx of Known/Suspected MRSA, Hx Shingles, Hx Tuberculosis, History Other Infectious Disease, Traveled Outside the [place] in Last 30 Days - Family History Known Family History: Positive: Hypertension - Social History Alcohol Use: Weekly Alcohol Amount: 1-2 drinks a week Substance Use Type: Reports: None Smoking Status (MU): Never Smoked Tobacco Review of Systems Positive: Other - Elevated BP Neurological: Other - Disoriented, aphasia Positive: Headache All Other Systems Reviewed And Are Negative: Yes Physical Exam - Summary Physical Exam Summary: VITAL SIGNS: Reviewed. GENERAL: Patient is a well-developed and nourished MALE who is lying comfortable in the stretcher. Patient is not in any acute respiratory distress. HEAD AND FACE: No signs of trauma. No ecchymosis, hematomas or skull depressions. No sinus tenderness. EYES: PERRLA, EOMI x 2, No injected conjunctiva, no nystagmus. EARS: Hearing grossly intact. Ear canals and tympanic membranes are within normal limits. MOUTH: Oropharynx within normal limits. NECK: Supple, trachea is midline, no adenopathy, no JVD, no carotid bruit, no c- spine tenderness, neck with full ROM. CHEST: Symmetric, no tenderness at palpation LUNGS: Clear to auscultation bilaterally. No wheezing or crackles. CVS: Regular rate and rhythm, S1 and S2 present, no murmurs or gallops appreciated. ABDOMEN: Soft, non-tender. No signs of distention. No rebound no guarding, and no masses palpated. Bowel sounds are normal. EXTREMITIES: FROM in all major joints, no edema, no cyanosis or clubbing. NEURO: Alert and oriented x 3. No acute neurological deficits. Speech is normal and follows commands. SKIN: Dry and warm Triage Information Reviewed: Yes Vital Signs On Initial Exam: Initial Vitals Temp Pulse Resp BP Pulse Ox 97.6 F 60 18 213/102 98 05/31/19 22:55 05/31/19 22:55 05/31/19 22:55 05/31/19 22:55 05/31/19 22:55 Vital Signs Reviewed: Yes Diagnostics - Vital Signs Vital Signs Temp Pulse Resp BP Pulse Ox 05/31/19 22:55 97.6 F 60 18 213/102 98 - Laboratory Result Diagrams: 06/01/19 00:01 06/01/19 00:01 Lab Statement: Any lab studies that have been ordered have been reviewed, and results considered in the medical decision making process. - CT CTA Head/Neck CT Interpretation Completed By: Radiologist Summary of CT Findings: 1. Atheromatous changes involving both carotid artery shunt. No hemodynamically signifcant anrrowing. No carotid dissection or occlusion. 2. No hemodynmaically significant narrowing of the cervical vertebral arteries. No dissection or occlusion. ED Provider has reviewed this report. Brain CT Interpretation Completed By: Radiologist Summary of CT Findings: No acute intracranial findings. ED Provider has reviewed this report. - EKG 2341 Cardiac Rate: NL - 76 BPM EKG Rhythm: Sinus Rhythm Summary of EKG Findings: Normal axis, normal interval, no ischemic changes. NIH Scale - NIH Scale Level of Consciousness: Alert/Keenly Responsive Ask Patient the Month and His/Her Age: Both Correct Ask Pt to Open/Close Eyes and Engineer Specialist/Release Non-Paretic Hand: Both Correctly Best Gaze (Only Horizontal Eye Movement): Normal Visual Field Testing: No Visual Loss Facial Paresis-Pt to Smile & Close Eyes or Grimace Symmetry: Normal/Symmetrical Motor Function - Right Arm: No Drift-Holds 10 Seconds Motor Function - Left Arm: No Drift-Holds 10 Seconds Motor Function - Right Leg: No Drift-Holds 10 Seconds Motor Function - Left Leg: No Drift-Holds 10 Seconds Limb Ataxia-Must be out of Proportion to Weakness Present: Absent Sensory (Use Pinprick to Test Arms/Legs/Trunk/Face): Normal Best Language (Describe Picture, Name Items): No Aphasia Dysarthria (Read Several Words): Normal Extinction and Inattention: No Abnormality Total Score: 0 Course/Dx - Course Course Of Treatment: This patient is an 84 year old male accompanied by his presenting to [facility] with a chief complaint of feeling disoriented since 2 hours ago. Physical exam was unremarkable for stroke symptoms. CTA head revealed Atheromatous changes involving both carotid artery shunt. The patient' s hypertension was improved. Labs were unremarkable. Dr. Comer, Hospitalist, accepted the patient for admission. This plan was discussed with the patient and he was agreeable with this plan. - Diagnoses Provider Diagnoses: Hypertension, TIA (transient ischemic attack) Discharge - Sign-Out/Discharge Documenting (check all that apply): Patient Departure - Admission Patient Received Moderate/Deep Sedation with Procedure: No - Discharge Plan Condition: Stable Disposition: ADMITTED TO [facility] Referrals: Virginia Santiago MD [Primary Care Provider] - - Attestation Statements Document Initiated by Scribe: Yes Documenting Scribe: Karl Wagner Provider For Whom Scribe is Documenting (Include Credential): Garrick Cardoza MD Scribe Attestation: Karl Pascual, scribed for Garrick Cardoza MD on 06/01/19 at 0322. Status of Scribe Document: Ready
[2019-05-31] MEDS ORDERED: Iodixanol* (CONTRAST) 320 MG/ML 100 ML SDV IV ONE (23:35)
[2019-06-01] MEDS ORDERED: hydrALAZINE IV* 20 MG/ML VIAL ONE
[2019-06-01] MEDS ORDERED: hydrALAZINE IV* 20 MG/ML VIAL IV SLOW PU ONE ×2 (00:01→00:54)
[2019-06-01 00:11] LABS: ABS Eosinophils 0.2 10^3/ul (0-0.6); ABS Lymphocytes 1.9 10^3/ul (1.0-4.8); ABS Monocytes 0.5 10^3/ul (0-0.8); ABS Neutrophils 3.1 10^3/ul (1.5-7.7); Eosinophil % 3.3 %; Hematocrit 38 % (42-52); Hemoglobin 13.4 g/dL (14.0-18.0); Lymphocyte % 33.2 %; Mean Corpuscular HGB Conc 35 g/dL (31-36); Mean Corpuscular Hemoglobin 33 pg (27-31); Mean Corpuscular Volume 96 fL (80-94); Mean Platelet Volume 7.3 fL (7.4-10.4); Platelet Count 271 10^3/uL (150-450); Red Blood Count 4.01 10^6 /uL (4.18-5.48); Red Cell Distribution Width 14 % (10-15); White Blood Count 5.6 10^3/uL (3.5-10.8)
[2019-06-01 00:20] LABS: Activated Partial Thrombo Time 39.2 seconds (26.0-38.0); INR 0.91 (0.82-1.09)
[2019-06-01 00:25] LABS: Albumin/Globulin Ratio 1.8 (1-3); BUN/Creatinine Ratio 15.6 (8-20); Calcium 9.5 mg/dL (8.6-10.3); EGFR African American 116.7 (>60); EGFR Non-African American 96.5 (>60); Globulin 2.2 g/dL (2-4); Magnesium 2.2 mg/dL (1.9-2.7); Potassium 3.9 mmol/L (3.5-5.0); Total Bilirubin 0.7 mg/dL (0.2-1.0); Total Protein 6.2 g/dL (6.4-8.9)
[2019-06-01 01:13] LABS: C Reactive Protein 1.04 mg/L (<8.01)
[2019-06-01 02:02] LABS: Erythrocyte Sed Rate 9 mm/Hr (0-19)
[2019-06-01] MEDS ORDERED: Hydrocodone/Acetamin 10/325 1 TAB PO ONE (03:33)
[2019-06-01] MEDS ORDERED: hydrALAZINE IV* 20 MG/ML VIAL IV SLOW PU PRN (05:28)
[2019-06-01] MEDS ORDERED: Aspirin 81 mg CHEW TAB* 81 MG TAB.CHEW PO SCH (09:00)
[2019-06-01] MEDS ORDERED: Lisinopril TAB* 5 MG PO SCH (09:00)
--- NOTE | 2019-06-01 09:04 | HP ---
CC: Dr. Virginia Santiago. ADMISSION HISTORY AND PHYSICAL: DATE OF ADMISSION: 06/01/19. CHIEF COMPLAINT: Altered mental status. HISTORY OF PRESENT ILLNESS: This is an 84-year-old male accompanied by his with chief complaint of feeling disoriented for the last 2 hours. The patient stated that he took his nozjyq-km-szy for dinner and drove home and told his that he felt disoriented and he continued to feel confused and could not remember his recent work. 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 So, he finally decided to come to the ER. He was also having expressive aphasia per and was very confused and could not remember much and having difficulty with word finding according to the . Upon arrival to the ER, his blood pressure was noted to be severely elevated at 213/105; however, a CT brain was negative for any acute event and the patient otherwise did not have any weakness, numbness, tingling. No chest pain, shortness of breath. No other dizziness or lightheadedness. By the time I saw the patient, his symptoms had resolved and he felt more like himself. He otherwise offers no other symptoms whatsoever. No fever, chills, and as mentioned, no abdominal pain. No nausea, vomiting or diarrhea. No numbness, tingling, or weakness. PAST MEDICAL HISTORY: He has a history of: 1. Asthma. 2. Cataracts. 3. Umbilical hernia repair. 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 5. History of blood pressure. He claims improved after being on plant-based diet, but is only on one lisinopril medication. 6. Chronic back pain on opioids. 7. History of cataract surgeries. HOME MEDICATIONS: The patient is only currently on: 1. Lisinopril 5 mg oral daily. 2. Hydrocodone with acetaminophen 1/2 tablet oral daily at bedtime. 3. He also takes ughy-veo-vzjzwao clomipramine 2 tablets every evening for insomnia. 4. Levalbuterol as needed for his intermittent asthma. ALLERGIES: The patient is allergic to ADHESIVE TAPE, AMLODIPINE, CIPROFLOXACIN , LATEX, BACTRIM, HAY FEVER and STATINS. FAMILY HISTORY: Significant for a father with dyslipidemia, mother with breast cancer. 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 Denies any smoking. Drinks about 1 to 1-1/2 glasses of wine every evening. He is on a plant-based diet and has lost over 20 pounds over the last 3 years. He is currently a full code. REVIEW OF SYSTEMS: A 14-point review of systems did not reveal any new information other than what is stated in the HPI. PHYSICAL EXAMINATION GENERAL: The patient is awake, alert and oriented x3. He does not appear to be in any acute respiratory distress. VITAL SIGNS: In the ER, BP was noted to be 170/77, heart rate 71, respiration rate 11, saturating 97% on room air. The temperature was documented at 97.6. HEAD AND NECK: Atraumatic, normocephalic. Bilateral pupils are reactive. Oral mucosa was moist. Neck: Supple. No jugular venous distention. LUNGS: Clear to auscultation bilaterally. No wheezing, rhonchi, or rales. HEART: S1, S2. Regular rate and rhythm. ABDOMEN: Soft, nontender, nondistended. EXTREMITIES: No cyanosis, clubbing or edema. NEUROLOGIC: Able to move, 5/5 in all 4 extremities. DIAGNOSTIC STUDIES/LAB DATA: CBC was unremarkable except for mild anemia. Coagulation profile and comprehensive metabolic panel was unremarkable except for a minimally elevated random glucose at 139. EKG with sinus rhythm without any ST elevation at a rate of 76 beats per minute. When compared to older EKG, it is essentially unchanged. CT brain showed no acute intracranial findings. CTA of the head was also performed and this showed a few findings suggestive of focal areas of narrowing involving the right and left posterior cerebral artery which appeared to be hemodynamically significant. We recommended 3D reconstruction and considering a perfusion study. There was also suggestion of possibility of arteritis in one of the addendums and further addendum after a 3D after reconstruction study of the vertebrobasilar circulation would be done. There were also atheromatous changes involving both carotid artery shunt. No hemodynamically significant narrowing. No carotid dissection or occlusion was noted. IMPRESSION: This is an 84-year-old gentleman with hypertension, which is uncontrolled today, came in with altered mental status and some mild confusion. Possible transient ischemic attack. 1. Transient ischemic attack: We will get a brain MRI with and without contrast to rule out any minute changes. We will consider consultation with Neurology to evaluate the patient and to see if the patient would benefit from any further studies especially in light of his CTA findings. 2. History of hypertension, now uncontrolled. For now, we will start the patient on permissive hypertension given his transient ischemic attack. I will restart his home lisinopril and also start the patient on p.r.n. hydralazine to be given whenever systolic blood pressure is greater than 181. If okay with Neurology, we can consider starting the patient on further antihypertensive medications to lower the blood pressure to a more optimal range. 3. History of mild intermittent asthma. 4. DVT prophylaxis with sequential compression device. [id number]/[facility] #: [id number] [facility]
[2019-06-01 12:27] VITALS: BP 146/79
[2019-06-01] MEDS ORDERED: Clopidogrel TAB* 75 MG PO SCH (14:00)
--- NOTE | 2019-06-01 15:40 | CONS ---
CONSULTATION REPORT: DATE OF CONSULT: 06/01/19 PATIENT OF: Dr. Heath, Dr. Kidd, and Dr. Santiago. HISTORY OF PRESENT ILLNESS: This is an 84-year-old right-handed man who has had an episode last evening of disorientation and difficulty with word finding that lasted about 2 hours. He has never had any prior similar symptoms other than the day before he had a brief episode that lasted seconds to a minute of momentary disorientation. He had, according to his , no facial droop and he denied any weakness, but did have word-finding difficulty. His blood pressure in the ER was as high as 213/105 and he was admitted. He has had no further symptoms. No headache. PAST MEDICAL HISTORY: He has a history of asthma; cataracts; umbilical hernia repair; anorectal fistula after an anorectal abscess; history of hypertension; chronic back pain, on opioids; history of cataract surgery. MEDICATIONS: At home include: 1. Lisinopril 5 mg orally. 2. Hydrocodone daily at bedtime, half a pill. 3. Hycq-qgk-duqukzs clomipramine for insomnia. 4. Levalbuterol p.r.n. asthma. ALLERGIES: He is allergic to ADHESIVE TAPE, AMLODIPINE, CIPRO, LATEX, BACTRIM, HAY FEVER, and 20 years ago, he says he had a significant reaction to STATINS. FAMILY HISTORY: Father with dyslipidemia and mother with breast cancer. 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 Drinks 1 to 1-1/2 glasses of wine every evening. He is on a plant-based diet and lost 20 pounds over the last 3 years' time. REVIEW OF SYSTEMS: Negative in all 14 spheres other than HPI. PHYSICAL EXAM: Temperature 98, pulse 83, respiratory rate 16, blood pressure 146/79. He was alert and oriented with normal speech and comprehension. Cranial nerves II through XII were intact. Fundi were benign. Motor exam revealed normal tone, strength, coordination, gait. Sensation intact to light touch. Reflexes 2 and equal. Chest clear. Cardiovascular: Regular rate and rhythm. Abdomen: Soft with positive bowel sounds. DIAGNOSTIC STUDIES/LAB DATA: His labs include normal CBC other than hematocrit of 38, MCV of 96, sed rate 9, INR of 0.9, PTT of 39. CMP was normal other than a glucose of 139. His CTA showed no significant carotid stenosis, right and left posterior cerebral narrowing which appeared to be hemodynamically significant. He had atheromatous changes involving both carotids. I reviewed his CT scan which showed no acute findings or major abnormalities whatsoever. IMPRESSION AND PLAN: I discussed with Dr. Hanks and his that he had an expressive aphasia associated with mild confusion yesterday and this was either due to transient ischemic attack or a hypertensive encephalopathy. His blood pressure elevation could have been secondary to anxiety and the transient ischemic attack or it could have been the primary cause for his symptoms. If the MRI scan does not show signs of acute stroke, then we will not be able to sort this out fully. He needs as part of his work up an echo with bubble study. He had an echo for PVCs recently, but apparently this was without bubble study, so he will need that and I agree that an MRI scan would be appropriate. He needs also fasting lipid profile. The MRI and echo are unlikely to be done before Monday, and if he can go home and get that done as an outpatient, I will be glad to see him in followup within the next week and a half of these studies. He should be on aspirin and Plavix for the next month. I discussed issues such as more aggressive monitoring for cardioembolic stroke such as the loop recorder, but I think that most likely his symptoms were secondary to his atherosclerotic disease being detected on his CTA with risk factors of hypertension, maybe hyperlipidemia, but they are going to decide whether they want to pursue things such as a loop recorder further. Thank you for sharing his case. [id number]/[facility] #: [id number] JOSHUA
--- NOTE | 2019-06-01 16:22 | DS ---
AMENDED REPORT NOW INCLUDES DATE OF ADMISSION CC: Dr. Virginia Santiago; Dr. Moseley * DISCHARGE SUMMARY: DATE OF ADMISSION: 06/01/19 DATE OF DISCHARGE: 06/01/19 HISTORY OF PRESENT ILLNESS/HOSPITAL COURSE: This 84-year-old man presented with altered mental status and aphasia. He said he could not find words. Also , he was having trouble recalling memories from the previous week and a half. This started about 6 p.m. on the day of admission. He spent almost the entire night in the emergency room. After about 12 hours, he was moved to his room on the medical cota. He slept for about 2 hours, and when he awoke, he seemed to be back to normal. He had not had previous events like this before. The rest of the history is summarized in the admission note. The patient had a CT scan and CTA of the head. He was evaluated by Dr. Moseley. Tentative diagnosis was TIA. The patient will have a fasting lipid profile as an outpatient. He will have an MRI of the brain and an echo with a bubble study as an outpatient also. He will follow up with Dr. Moseley. FINAL DIAGNOSES: 1. Possible transient ischemic attack. 2. History of asthma. 3. Hypertension. 4. Chronic back pain. DISCHARGE MEDICATIONS: 1. Aspirin 81 mg daily. 2. Clopidogrel 75 mg daily. 3. Hydrocodone with acetaminophen 5/325 one daily. 4. Lisinopril 5 mg daily. CONDITION ON DISCHARGE: Improved. DISPOSITION ON DISCHARGE: Discharged home. [id number]/[facility] #: [id number] MTDHuma
[2019-06-01] MEDS ORDERED: HYDROcodone/ACETAMIN 5-325 MG* 1 TAB PO SCH (21:00)
== END 2019-06-01 14:54 | disposition home or self-care (01) ==
LOC: ED 22:53 → MEDTELE 06-01 05:21 → INTOOBSV 06-01 05:21
PROVIDERS: ADMIT Internal Medicine; ATTEND Internal Medicine
DX: R41.82 Altered mental status, unspecified (principal); R47.01 Aphasia; J45.909 Unspecified asthma, uncomplicated; I10 Essential (primary) hypertension; E78.00 Pure hypercholesterolemia, unspecified; M54.9 Dorsalgia, unspecified; G89.29 Other chronic pain; Z79.82 Long term (current) use of aspirin; Z79.899 Other long term (current) drug therapy; H26.9 Unspecified cataract; Z88.2 Allergy status to sulfonamides; Z87.19 Personal history of other diseases of the digestive system
CPT/HCPCS: 36415; 70450; 70496; 70498; 80053; 83735; 85025; 85610; 85652; 85730; 86140; 93005; 96374; 96375; 99284; A9270-GY; G0378; J0360; Q9967

== ENCOUNTER 2019-06-10 06:45 | Emergency (ER) | payer MEDICARE ==
--- NOTE | 2019-06-10 07:20 | ED ---
Hypertension - HPI Summary HPI Summary: Patient is a 84 y/o M w/ recent TIA on 05/31/19 who presents to [facility] with complaints of high blood pressure and gastritis Sx. He states that last night, , around 1700, he had BP measurements of 162/96, 179/89. Pulse at the time was 55 BPM, which he characterizes as his baseline. He had another BP of 176/79 and later of 170 systolic, pulse 74. He took lisinopril once more at 2300. He notes that he did not sleep well and states that he had "gastritis". He goes on to say that he was experiencing bloating, belching, increased frequency of BM and gaseous. Patient took antacids. Vomiting and nausea are denied. He measured BP at 0400 today, 06/10/19 to be 157/90. Patient states that he felt "crappy" at 0545, BP at the time was 210/109, second 208/110. In the room, he reports that gastritis Sx are resolved. Patient was evaluated for a TIA on 05/31/19. 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 He notes that he felt a "snap" in his head as well. The following day, he went to dinner and had difficulty putting thoughts together and felt confused. He reports he drove himself home "easily enough". When he returned home, he had difficulty finding words and slow speech, per . They decided to go to the ED, and the patient states that he felt "loopy" on the car ride over. Brain CT was normal, patient states that he was bradycardic and having PVCs. Patient was admitted and held overnight. He reports that his Sx resolved the following morning, 06/01/19. He notes that he had elevated BP during this episode. Patient denies any similar stroke-like Sx for present episode. He had an MRI on 06/07/19, results were reviewed with patient. There was no indication for acute stroke. In room, BP 158/82, o2 98, pulse 63. Second measurement of BP was 183/117. On triage, nothing is noted to aggravate/alleviate Sx. Home medications and allergies are reviewed. - History of Current Complaint Chief Complaint: EDHypertension Stated Complaint: HIGH BP PER PT Time Seen by Provider: 06/10/19 07:10 Hx Obtained From: Patient, Family/Communications Attendant, Medical Records Onset/Duration: Started Hours Ago, Resolved - gastritis Sx Timing: Constant, Lasting Hours Reported Blood Pressure Prior To Arrival: highest was 210/109 Aggravating Factor(s): Nothing Alleviating Factor(s): Nothing Associated Signs & Symptoms: Other: - patient endorses bloating, belching, increased frequency of BM and feeling gasseous Vomiting and nausea are denied. - Allergies/Home Medications Allergies/Adverse Reactions: Allergies Allergy/AdvReac Type Severity Reaction Status Date / Time Adhesive Tape Allergy Rash Verified 06/10/19 06:51 amlodipine Allergy Rash Verified 06/10/19 06:51 ciprofloxacin [From Cipro] Allergy Agitation Verified 06/10/19 06:51 latex Allergy Rash Verified 06/10/19 06:51 sulfamethoxazole Allergy Rash Verified 06/10/19 06:51 [From Bactrim] trimethoprim [From Bactrim] Allergy Rash Verified 06/10/19 06:51 Hay Fever Allergy Congestion Uncoded 06/10/19 06:51 statins Allergy Muscle Ache Uncoded 06/10/19 06:51 PMH/Surg Hx/FS Hx/Imm Hx Endocrine/Hematology History: Denies: Hx Diabetes Cardiovascular History: Reports: Hx Hypercholesterolemia, Hx Hypertension - ok now Denies: Hx Angina, Hx Coronary Artery Disease, Hx Myocardial Infarction, Hx Pacemaker/ICD, Hx Valvular Heart Disease, Other Cardiovascular Problems/ Disorders Respiratory History: Reports: Hx Asthma - prn inhaler, Denies: Hx Chronic Obstructive Pulmonary Disease (COPD), Other Respiratory Problems/Disorders GI History: Denies: Other GI Disorders History: Denies: Hx Chronic Renal Failure, Hx Renal Disease Musculoskeletal History: Denies: Hx Osteoporosis, Other Musculoskeletal History Sensory History: Reports: Hx Cataracts - post sx Denies: Hx Contacts or Glasses, Hx Glaucoma, Hx Hearing Aid Opthamlomology History: Reports: Hx Cataracts - post sx Denies: Hx Contacts or Glasses, Hx Glaucoma Neurological History: Denies: Other Neuro Impairments/Disorders Psychiatric History: Denies: Hx Panic Disorder - Cancer History Cancer Type, 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 - Surgical History Surgery Procedure, Year, and Place: UMBILICAL HERNIA Hx Anesthesia Reactions: Yes - mental issues with sedation - Immunization History Immunizations Up to Date: Yes Infectious Disease History: No Infectious Disease History: Denies: Hx Clostridium Difficile, Hx Hepatitis, Hx Human Immunodeficiency Virus (HIV), Hx of Known/Suspected MRSA, Hx Shingles, Hx Tuberculosis, History Other Infectious Disease, Traveled Outside the [place] in Last 30 Days - Family History Known Family History: Positive: Hypertension - Social History Alcohol Use: Daily Alcohol Amount: 1 Substance Use Type: Reports: None Smoking Status (MU): Former Smoker Amount Used/How Often: remote hx Have You Smoked in the Last Year: No Review of Systems Cardiovascular: Other - positive - elevated BP Gastrointestinal: Other - positive - bloating, belching, increased frequency of BM and gaseous. Negative: Vomiting, Nausea Neurological: Other - no stroke-like Sx All Other Systems Reviewed And Are Negative: Yes Physical Exam - Summary Physical Exam Summary: Appearance: Well-appearing, Well-nourished, lying in bed comfortable Skin: Warm, dry, no obvious rash Eyes: sclera anicteric, no conjunctival pallor ENT: mucous membranes moist Neck: deferred Respiratory: No signs of respiratory distress Cardiovascular: Appears well perfused, pulses are nml Abdomen: deferred Musculoskeletal: Moving all 4 extremities without obvious discomfort Neurological: Awake and alert, mentation is normal, speech is fluent and appropriate Psychiatric: affect is normal, does not appear anxious or depressed Triage Information Reviewed: Yes Vital Signs On Initial Exam: Initial Vitals Temp Pulse Resp BP Pulse Ox 98.1 F 85 16 166/108 98 06/10/19 06:46 06/10/19 06:46 06/10/19 06:46 06/10/19 06:46 06/10/19 06:46 Vital Signs Reviewed: Yes Diagnostics - Vital Signs Vital Signs Temp Pulse Resp BP Pulse Ox 06/10/19 06:46 98.1 F 85 16 166/108 98 - Laboratory Lab Statement: Any lab studies that have been ordered have been reviewed, and results considered in the medical decision making process. Hypertension Course/Dx - Course Course Of Treatment: Patient is a 84 y/o M w/ recent TIA on 05/31/19 who presents to [facility] with complaints of high blood pressure and gastritis Sx. Patient states that he felt "crappy" at 0545, BP at the time was 210/109, second 208/ 110. In the room, he reports that GI Sx are resolved. He had an MRI on 06/07/19, results were reviewed with patient. There was no indication for acute stroke. Patient has no stroke-like Sx at present. In room, BP 158/82, o2 98, pulse 63. Second measurement of BP was 183/117. Discussed presentation with patient, he will be discharged to home and is advised to follow up with PCP for possible BP medication adjustments. He is agreeable with this. - Diagnoses Provider Diagnoses: HTN (hypertension) Discharge ED - Sign-Out/Discharge Documenting (check all that apply): Patient Departure - discharge Patient Received Moderate/Deep Sedation with Procedure: No - Discharge Plan Condition: Stable Disposition: HOME Patient Education Materials: Chronic Hypertension (ED) Referrals: Virginia Santiago MD [Primary Care Provider] - Additional Instructions: You are experiencing some lability in your blood pressure, but fortunately it does not appear to be causing any compromise to your health in the short term. Without some type of symptomatology that would suggest end organ injury from an elevated blood pressure, I would not recommend pursuing further testing or specific treatment as this is likely to smooth out on its own. If the numbers remain elevated, I would discuss this with the physician managing your BP treatment as they might want to adjust the dose of your medication, but for now I would not do that. - Billing Disposition and Condition Condition: STABLE Disposition: Home - Attestation Statements Document Initiated by Vicente: Yes Documenting Scribe: CONY MART Provider For Whom Vicente is Documenting (Include Credential): DOREEN ORTEGA MD Scribe Attestation: I, CONY MART, scribed for DOREEN ORTEGA MD on 06/14/19 at 1901. Scribe Documentation Reviewed: Yes Provider Attestation: The documentation as recorded by the CONY villalobos accurately reflects the service I personally performed and the decisions made by me, DOREEN ORTEGA MD Status of Scribe Document: Viewed
[2019-06-10 07:43] VITALS: BP 152/89
== END 2019-06-10 07:42 | disposition home or self-care (01) ==
LOC: ED 06:45
DX: I10 Essential (primary) hypertension (principal); E78.00 Pure hypercholesterolemia, unspecified; Z87.891 Personal history of nicotine dependence; Z88.2 Allergy status to sulfonamides; Z88.8 Allergy status to other drugs, medicaments and biological substances; Z88.1 Allergy status to other antibiotic agents; Z91.040 Latex allergy status; Z79.899 Other long term (current) drug therapy
CPT/HCPCS: 99282

== ENCOUNTER 2019-12-22 16:39 | Emergency (ER) | payer MEDICARE ==
--- OUTSIDE RECORDS SUMMARY | 2019-12-22 16:46 | XMS REPORT | Continuity of Care Document ---
:1935 External Reference #:[id number] Author Name Aníbal Garcia MD Address [address] [place] [address] Care Team Providers Name Role Phone Virginia Santiago MD Care Team Information Assembler Lay Ups Unavailable Problems Active Problems Provider Date Acute maxillary sinusitis Aníbal Garcia MD Onset: 11/25/2016 Atopic dermatitis Aníbal Garcia MD Onset: 09/28/2018 Exacerbation of moderate persistent asthma Aníbal Garcia MD Onset: Viremia Aníbal Garcia MD Onset: 02/15/2019 Uncomplicated moderate persistent asthma Aníbal Garcia MD Onset: 03/2019 Acute bronchitis Aníbal Garcia MD Onset: 11/15/2019 Social History Type Date Description Comments Sex Unknown Tobacco Use Start: Unknown Patient has never smoked Smoking Status Reviewed: 11/15/19 Patient has never smoked Allergies, Adverse Reactions, Alerts Active Allergies Reaction Severity Comments Date Bactrim 11/25/2016 Rosuvastatin memory loss 02/15/2019 Quinolones 11/25/2016 Statins 11/25/2016 Amlodipine 11/25/2016 Chlorthalidone Rash 09/27/2019 Clopidogrel 09/27/2019 Medications Active Medications SIG Qnty Indications Ordering Date Provider Augmentin twice a day for 28tabs J45.41 Aníbal Hernandez 875-125mg Tablets 14 days MD Jose 0 [place] inhale 4 puffs 6.100gm Aníbal Hernandez 160mcg/Act Aerosol (320 mcg) by MD Jose 9 inhalation route 2 times per day Azelastine HCL (Nasal) 2 sprays each 30ml Nathaly Daily 0.1% nostril twice a HOUSEKEEPING ROOM ATTENDANT 9 Solution day as needed Pulmicort Flexhaler 4 puffs bid 1units J45.41 [place] A. 180mcg/Act MD Jose 9 Aerosol Proair HFA 2 puffs every 4 8.[facility]gm [facility] 108(90Base) mcg/Act as needed MD Jose 9 Aerosol Clobetasol Propionate E apply twice a 180gm L20.9 [facility]. 0.05% day as needed MD Jose 8 Cream Clarithromycin take one tablet Unknown 500mg Tablets by mouth twice 0 a day x14 days. Prednisone Unknown 5mg (21) TBPK 0 Prednisone Unknown 20mg Tablets 0 Lisinopril Unknown 40mg Tablets 0 Hydrochlorothiazide Take 1 Tablet Unknown 25mg By Mouth Every 0 Tablets Day Nasacort Allergy 24HR 2 sprays in Unknown 55mcg/Act each nostril 0 Aerosol once a day Metronidazole Apply To Unknown 0.75% Cream Affected Area 0 Twice A Day as Directed Triamcinolone Acetonide Apply To Unknown 0.1% Affected Area 0 Cream 2-3 Times A Day Saw [place] Unknown 80mg Capsules 0 Chlor-Trimeton Allergy Unknown 12mg 0 Tablets ER Hydrocodone-Acetaminophen take 1-2 Unknown tablets every 8 0 5-325mg Tablets hours for pain. History Medications Cefdinir take one capsule 56caps J45.40 Aníbal Cheng. 09/27/2019 - 300mg by mouth twice a MD Jose 11/06/2019 Capsules day x28 days Immunizations Description No Information Available Vital Signs Date Vital Result Comment 11/15/2019 4:34pm BP Systolic 137 mmHg BP Diastolic 76 mmHg Height 64 inches 5'4" Weight 165.00 lb BMI (Body Mass Index) 28.3 kg/m2 Heart Rate 102 /min Respiratory Rate 17 /min Body Temperature 97.1 F O2 % BldC Oximetry 96 % 11/06/2019 3:21pm BP Systolic 122 mmHg BP Diastolic 64 mmHg Height 64 inches 5'4" Weight 165.00 lb BMI (Body Mass Index) 28.3 kg/m2 Heart Rate 81 /min Body Temperature 98.4 F O2 % BldC Oximetry 97 % Results Description No Information Available Procedures Date Code Description Status 11/06/2019 28097 Nitric Oxide Gas Determination Completed 09/27/2019 35995 Nitric Oxide Gas Determination Completed 09/27/2019 72579 Bronchodilation Responsiveness Spirometry Pre/Post Completed Bronchodil Adm Medical Devices Description No Information Available Encounters Type Date Location Provider Dx Diagnosis Office Visit 11/15/2019 Xu Garcia J45.41 Moderate persistent 4:30p asthma with (acute) exacerbation J20.9 Acute bronchitis, unspecified Office Visit 11/06/2019 3:15p Xu De La Cruz45.40 Moderate persistent MD Jose asthma, uncomplicated J01.01 Acute recurrent maxillary sinusitis Office Visit 09/27/2019 4:45p Xu De La Cruz45.40 Moderate persistent MD Jose asthma, uncomplicated Assessments Date Code Description Provider 11/15/2019 J45.41 Moderate persistent asthma with (acute) Aníbal Garcia MD exacerbation 11/15/2019 J20.9 Acute bronchitis, unspecified Aníbal Garcia MD 11/06/2019 J45.40 Moderate persistent asthma, uncomplicated Aníbal Garcia MD 11/06/2019 J01.01 Acute recurrent maxillary sinusitis Aníbal Garcia MD 09/27/2019 J45.40 Moderate persistent asthma, uncomplicated Aníbal Garcia MD Plan of Treatment 11/15/2019 - Aníbal Garcia MDJ45.41 Moderate persistent asthma with ( acute) exacerbationNew Medication:Augmentin 875-125 mg - twice a day for 14 daysJ20.9 Acute bronchitis, unspecified Functional Status Description No Information Available Mental Status Description No Information Available Referrals Description No Information Available
--- OUTSIDE RECORDS SUMMARY | 2019-12-22 16:46 | XMS REPORT | Continuity of Care Document ---
:1935 External Reference #:[id number] Author Name Aníbal Garcia MD Address [address] [place] [address] Care Team Providers Name Role Phone Virginia Santiago MD Care Team Information Fence Erector Unavailable Problems Active Problems Provider Date Acute maxillary sinusitis Aníbal Garcia MD Onset: 11/25/2016 Atopic dermatitis Aníbal Garcia MD Onset: 09/28/2018 Exacerbation of moderate persistent asthma Aníbal Garcia MD Onset: Viremia Aníbal Garcia MD Onset: 02/15/2019 Uncomplicated moderate persistent asthma Aníbal Garcia MD Onset: 03/2019 Social History Type Date Description Comments Sex Unknown Tobacco Use Start: Unknown Patient has never smoked Smoking Status Reviewed: 09/27/19 Patient has never smoked Allergies, Adverse Reactions, Alerts Active Allergies Reaction Severity Comments Date Bactrim 11/25/2016 Rosuvastatin memory loss 02/15/2019 Quinolones 11/25/2016 Statins 11/25/2016 Amlodipine 11/25/2016 Chlorthalidone Rash 09/27/2019 Clopidogrel 09/27/2019 Medications Active Medications SIG Qnty Indications Ordering Date Provider [place] inhale 4 puffs 6.100gm Aníbal Hernandez 160mcg/Act Aerosol (320 mcg) by MD Jose 9 inhalation route 2 times per day Azelastine HCL (Nasal) 2 sprays each 30ml Nathaly Daily 0.1% nostril twice a INFORMATION TECHNOLOGY OFFICER 9 Solution day as needed Pulmicort Flexhaler 4 puffs bid 1units J45.41 Aníbal Hernandez 180mcg/Act MD Jose 9 Aerosol Proair HFA 2 puffs every 4 8.500gm [place] A. 108(90Base) mcg/Act as needed MD Jose 9 Aerosol Clobetasol Propionate E apply twice a 180gm L20.9 Christopher A. 0.05% day as needed MD Jose 8 Cream Hydrocodone-Acetaminophen take 1-2 Unknown tablets every 8 0 5-325mg Tablets hours for pain. Chlor-Trimeton Allergy Unknown 12mg 0 Tablets ER Saw [place] Unknown 80mg Capsules 0 Triamcinolone Acetonide Apply To Unknown 0.1% Affected Area 0 Cream 2-3 Times A Day Metronidazole Apply To Unknown 0.75% Cream Affected Area 0 Twice A Day as Directed Nasacort Allergy 24HR 2 sprays in Unknown 55mcg/Act each nostril 0 Aerosol once a day Hydrochlorothiazide Take 1 Tablet Unknown 25mg By Mouth Every 0 Tablets Day Lisinopril Unknown 40mg Tablets 0 Cefdinir take one 56caps Aníbal A. 300mg Capsules capsule by MD Jose 0 mouth twice a day x28 days History Medications Cefdinir take one capsule 56caps J45.40 [place] A. 09/27/2019 - 300mg by mouth twice a MD Jose 11/06/2019 Capsules day x28 days Immunizations Description No Information Available Vital Signs Date Vital Result Comment 11/06/2019 3:21pm BP Systolic 122 mmHg BP Diastolic 64 mmHg Height 64 inches 5'4" Weight 165.00 lb BMI (Body Mass Index) 28.3 kg/m2 Heart Rate 81 /min Body Temperature 98.4 F O2 % BldC Oximetry 97 % 09/27/2019 4:38pm BP Systolic 128 mmHg BP Diastolic 70 mmHg Height 64 inches 5'4" Weight 165.00 lb BMI (Body Mass Index) 28.3 kg/m2 Heart Rate 74 /min Respiratory Rate 16 /min Body Temperature 96.3 F O2 % BldC Oximetry 94 % Results Test Acquired Date Facility Test Result H/L Range Note Order 11/06/2019 [facility] Nitric Oxide <pending> Order 09/27/2019 [facility] Nitric Oxide <pending> Procedures Date Code Description Status 11/06/2019 96411 Nitric Oxide Gas Determination Completed 09/27/2019 78110 Nitric Oxide Gas Determination Completed 09/27/2019 58278 Bronchodilation Responsiveness Spirometry Pre/Post Completed Bronchodil Adm Medical Devices Description No Information Available Encounters Type Date Location Provider Dx Diagnosis Office Visit 11/06/2019 Xu Hernandez J45.40 Moderate persistent 3:15p MD Jose asthma, uncomplicated J01.01 Acute recurrent maxillary sinusitis Office Visit 09/27/2019 4:45p Xu De La Cruz45.40 Moderate persistent MD Jose asthma, uncomplicated Assessments Date Code Description Provider 11/06/2019 J45.40 Moderate persistent asthma, uncomplicated Aníbal Garcia MD 11/06/2019 J01.01 Acute recurrent maxillary sinusitis Aníbal Garcia MD 09/27/2019 J45.40 Moderate persistent asthma, uncomplicated Aníbal Garcia MD Plan of Treatment No Information Available Functional Status Description No Information Available Mental Status Description No Information Available Referrals Description No Information Available
[2019-12-22 17:02] VITALS: BP 138/90
[2019-12-22 17:22] LABS: Influenza A Molecular Negative (Negative); Influenza B Molecular Negative (Negative)
--- NOTE | 2019-12-22 17:51 | UC ---
General HPI - HPI Summary HPI Summary: 84-year-old male comes in with a chief complaint of exposure to influenza. His was diagnosed today with influenza. At this time the patient does not have any influenza symptoms. He does report that he's been sick for her 9 weeks primarily with respiratory issues. Reports he had a normal chest x-ray recently and was checked out by his header machine operator. He continues to be fatigued. He did have some chest congestion which albuterol did help with. - History of Current Complaint Chief Complaint: UCGeneralIllness Stated Complaint: EXPOSED TO SOMEONE WITH FLU Time Seen by Provider: 12/22/19 16:55 Pain Intensity: 5 - Allergy/Home Medications Allergies/Adverse Reactions: Allergies Allergy/AdvReac Type Severity Reaction Status Date / Time Adhesive Tape Allergy Rash Verified 12/22/19 17:05 amlodipine Allergy Rash Verified 12/22/19 17:05 chlorthalidone Allergy Rash Verified 12/22/19 17:05 ciprofloxacin [From Cipro] Allergy Agitation Verified 12/22/19 17:05 latex Allergy Rash Verified 12/22/19 17:05 sulfamethoxazole Allergy Rash Verified 12/22/19 17:05 [From Bactrim] trimethoprim [From Bactrim] Allergy Rash Verified 12/22/19 17:05 Hay Fever Allergy Congestion Uncoded 12/22/19 17:05 statins Allergy Muscle Ache Uncoded 12/22/19 17:05 Home Medications: Home Medications HYDROcodone/ACETAMIN 5-325 MG* [[place] 5-325 TAB*] 1.5 tab PO BID PRN 03/05/19 [ History Confirmed 10/01/19] Aspirin 81 mg CHEW TAB* 81 mg PO DAILY tab.chew 06/01/19 [Rx Confirmed 10/02/19 ] Ciclesonide 160 MG MDI (NF) [Alves[place] 160 MDI (NF)] 2 puff INH BID 10/01/19 [ History Confirmed 10/01/19] Cyanocobalamin (Vitamin B-12) [Vitamin B-12] 500 mcg SL EVERY OTHER DAY [History Confirmed 10/01/19] Levalbuterol HFA INHALER* [Xopenex Hfa Inhaler*] 4 puff INH BID 10/01/19 [ History Confirmed 12/22/19] Lisinopril TAB* [Prinivil TAB 5 MG*] 40 mg PO DAILY 10/01/19 [History Confirmed 10/01/19] hydroCHLOROthiazide [Hydrochlorothiazide] 25 mg PO DAILY 10/01/19 [History Confirmed 10/01/19] Oseltamivir CAP* [Tamiflu CAP*] 75 mg PO BID #9 cap 12/22/19 [Rx] PMH/Surg Hx/FS Hx/Imm Hx Previously Healthy: Yes Cardiovascular History: Hypertension Respiratory History: Asthma - Surgical History Surgical History: None Surgery Procedure, Year, and Place: UMBILICAL HERNIA - Family History Known Family History: Positive: Hypertension - Social History Alcohol Use: Daily Alcohol Amount: 1 cup of wine per night Substance Use Type: None Smoking Status (MU): Former Smoker Amount Used/How Often: remote hx Have You Smoked in the Last Year: No Household Exposure Type: Cigarettes - Immunization History Most Recent Influenza Vaccination: 2014 Most Recent Pneumonia Vaccination: "a few years ago" Review of Systems All Other Systems Reviewed And Are Negative: Yes Constitutional: Positive: Other - SEE HPI Skin: Positive: Negative Eyes: Positive: Negative ENT: Positive: Negative Respiratory: Positive: Other - SEE HPI Cardiovascular: Positive: Negative Gastrointestinal: Positive: Negative Motor: Positive: Negative Neurovascular: Positive: Negative Musculoskeletal: Positive: Negative Neurological/Mental Status: Positive: Negative Psychological: Positive: Negative Is Patient Immunocompromised?: No Physical Exam Triage Information Reviewed: Yes Appearance: Well-Appearing, No Pain Distress, Well-Nourished Vital Signs: Initial Vital Signs Temp 97.7 F 12/22/19 16:56 Pulse 95 12/22/19 16:56 Resp 17 12/22/19 16:56 BP 138/90 12/22/19 16:56 Pulse Ox 99 12/22/19 16:56 Vital Signs Reviewed: Yes Eye Exam: Normal Eyes: Positive: Conjunctiva Clear ENT: Positive: Pharynx normal Neck: Positive: Supple Respiratory: Positive: Lungs clear, Normal breath sounds, No respiratory distress Cardiovascular: Positive: RRR Musculoskeletal: Positive: Strength Intact, ROM Intact Neurological: Positive: Alert, Muscle Tone Normal Psychological: Positive: Normal Response To Family, Age Appropriate Behavior Skin Exam: Normal Course/Dx - Course Course Of Treatment: With exposure to influenza patient prefers to be on Tamiflu. Due to to the fatigue a CBC and CMP were drawn. Patient will follow-up his primary care doctor get reevaluated sooner if worse or any questions or concerns. - Diagnoses Provider Diagnosis: Exposure to influenza, Fatigue Discharge ED - Sign-Out/Discharge Documenting (check all that apply): Patient Departure All imaging exams completed and their final reports reviewed: No Studies - Discharge Plan Condition: Stable Disposition: HOME Prescriptions: Oseltamivir CAP* [Tamiflu CAP*] 75 mg PO BID #9 cap Patient Education Materials: Influenza (ED), Fatigue (ED) Referrals: Virginia Santiago MD [Primary Care Provider] - Additional Instructions: FOLLOW UP WITH YOUR DOCTOR. GET REEVALUATED SOONER IF NOT IMPROVED OR WORSE OR ANY QUESTIONS OR CONCERNS. - Billing Disposition and Condition Condition: STABLE Disposition: Home
[2019-12-22] MEDS ORDERED: Oseltamivir CAP* 75 MG CAP PO ONE (17:55)
[2019-12-23 11:25] LABS: ABS Basophils 0.1 10^3/ul (0-0.2); ABS Eosinophils 0.1 10^3/ul (0-0.6); ABS Lymphocytes 1.8 10^3/ul (1.0-4.8); ABS Monocytes 0.4 10^3/ul (0-0.8); ABS Neutrophils 4.1 10^3/ul (1.5-7.7); Eosinophil % 2.1 %; Hematocrit 39 % (42-52); Hemoglobin 13.5 g/dL (14.0-18.0); Mean Corpuscular HGB Conc 35 g/dL (31-36); Mean Corpuscular Hemoglobin 33 pg (27-31); Mean Corpuscular Volume 97 fL (80-94); Mean Platelet Volume 8.9 fL (7.4-10.4); Nucleated Red Blood Cells % 0.5; Platelet Count 288 10^3/uL (150-450); Red Blood Count 4.05 10^6 /uL (4.18-5.48); Red Cell Distribution Width 14 % (10-15); White Blood Count 6.6 10^3/uL (3.5-10.8)
[2019-12-23 11:34] LABS: Albumin 4.3 g/dL (3.2-5.2); Calcium 9.9 mg/dL (8.6-10.3); Potassium 4.1 mmol/L (3.5-5.0); Total Bilirubin 0.8 mg/dL (0.2-1.0)
[2019-12-23 11:40] LABS: BUN/Creatinine Ratio 13.2 (8-20); EGFR African American 96.3 (>60); EGFR Non-African American 79.6 (>60); Globulin 2.2 g/dL (2-4); Total Protein 6.5 g/dL (6.4-8.9)
--- NOTE | 2019-12-23 19:10 | UC ---
- Progress Note Progress Note: Lab work from December 22, 2019 comes back with slightly low hemoglobin and hematocrit with values of 13.5 and 39 Normal range for hemoglobin is 14-18 Normal range for hematocrit is 42-52. The hemoglobin and hematocrit only mildly low and I would not expect them to cause any symptoms however, he should follow-up his primary care doctor. The white blood cell count and platelets were normal. The CMP which includes electrolytes kidney functions and liver functions were all normal. Nursing to call patient and inform him of the results. Patient to follow-up his primary care doctor. Course/Dx - Diagnoses Provider Diagnoses: Exposure to influenza, Fatigue Discharge ED - Sign-Out/Discharge Documenting (check all that apply): Patient Departure All imaging exams completed and their final reports reviewed: No Studies - Discharge Plan Condition: Stable Disposition: HOME Prescriptions: Oseltamivir CAP* [Tamiflu CAP*] 75 mg PO BID #9 cap Patient Education Materials: Influenza (ED), Fatigue (ED) Referrals: Virginia Santiago MD [Primary Care Provider] - Additional Instructions: FOLLOW UP WITH YOUR DOCTOR. GET REEVALUATED SOONER IF NOT IMPROVED OR WORSE OR ANY QUESTIONS OR CONCERNS. - Billing Disposition and Condition Condition: STABLE Disposition: Home
== END 2019-12-22 18:07 | disposition home or self-care (01) ==
LOC: UCEAST 16:39
DX: R53.83 Other fatigue (principal); I10 Essential (primary) hypertension; J45.909 Unspecified asthma, uncomplicated; Z20.828 Contact with and (suspected) exposure to other viral communicable diseases; Z91.09 Other allergy status, other than to drugs and biological substances; Z88.8 Allergy status to other drugs, medicaments and biological substances; Z88.1 Allergy status to other antibiotic agents; Z91.040 Latex allergy status; Z88.2 Allergy status to sulfonamides; Z79.82 Long term (current) use of aspirin; Z87.891 Personal history of nicotine dependence
CPT/HCPCS: 36415; 80053; 85025; 99212; A9270-GY; G0463

== ENCOUNTER 2019-12-28 12:53 | Emergency (ER) | payer MEDICARE ==
[2019-12-28 13:05] VITALS: BP 135/70
--- NOTE | 2019-12-28 13:20 | UC ---
Respiratory Complaint HPI - HPI Summary HPI Summary: dx with Influenza A last week he was treated with 5 days tamiflu---but he had sudden onset of fever and chills last night----is concerned he now has the flu or PNA - History of Current Complaint Chief Complaint: UCRespiratory Stated Complaint: FEVER X 3 DAYS,COUGH,CONGESTION Time Seen by Provider: 12/28/19 13:12 Hx Obtained From: Patient Onset/Duration: Sudden Onset Pain Intensity: 2 Pain Scale Used: 0-10 Numeric Character: Cough: Nonproductive Aggravating Factors: Nothing Alleviating Factors: Nothing Associated Signs And Symptoms: Positive: Fever, Chills, URI - Allergies/Home Medications Allergies/Adverse Reactions: Allergies Allergy/AdvReac Type Severity Reaction Status Date / Time Adhesive Tape Allergy Rash Verified 12/28/19 13:05 amlodipine Allergy Rash Verified 12/28/19 13:05 chlorthalidone Allergy Rash Verified 12/28/19 13:05 ciprofloxacin [From Cipro] Allergy Agitation Verified 12/28/19 13:05 latex Allergy Rash Verified 12/28/19 13:05 sulfamethoxazole Allergy Rash Verified 12/28/19 13:05 [From Bactrim] trimethoprim [From Bactrim] Allergy Rash Verified 12/28/19 13:05 Hay Fever Allergy Congestion Uncoded 12/28/19 13:05 statins Allergy Muscle Ache Uncoded 12/28/19 13:05 Home Medications: Home Medications HYDROcodone/ACETAMIN 5-325 MG* [[place] 5-325 TAB*] 1.5 tab PO BID PRN 03/05/19 [ History Confirmed 12/28/19] Aspirin 81 mg CHEW TAB* 81 mg PO DAILY tab.chew 06/01/19 [Rx Confirmed 12/28/19 ] Ciclesonide 160 MG MDI (NF) [Alvesco 160 MDI (NF)] 2 puff INH BID 10/01/19 [ History Confirmed 12/28/19] Cyanocobalamin (Vitamin B-12) [Vitamin B-12] 500 mcg SL EVERY OTHER DAY [History Confirmed 12/28/19] Levalbuterol HFA INHALER* [Xopenex Hfa Inhaler*] 4 puff INH BID 10/01/19 [ History Confirmed 12/28/19] Lisinopril TAB* [Prinivil TAB 5 MG*] 40 mg PO DAILY 10/01/19 [History Confirmed 12/28/19] hydroCHLOROthiazide [Hydrochlorothiazide] 25 mg PO DAILY 10/01/19 [History Confirmed 12/28/19] Cefdinir [Cefdinir 300 MG CAP] 300 mg PO BID #20 cap 12/28/19 [Rx] Oseltamivir CAP* [Tamiflu CAP*] 75 mg PO BID #10 cap 12/28/19 [Rx] PMH/Surg Hx/FS Hx/Imm Hx Previously Healthy: No Cardiovascular History: Hypertension Respiratory History: Asthma - Surgical History Surgical History: Yes Surgery Procedure, Year, and Place: UMBILICAL HERNIA - Family History Known Family History: Positive: Hypertension - Social History Occupation: Employed Part-time Lives: With Family Alcohol Use: Daily Alcohol Amount: 1 glass of wine per night Substance Use Type: None Smoking Status (MU): Former Smoker Amount Used/How Often: remote hx Have You Smoked in the Last Year: No Household Exposure Type: Cigarettes - Immunization History Most Recent Influenza Vaccination: 2014 Most Recent Pneumonia Vaccination: "a few years ago" Review of Systems All Other Systems Reviewed And Are Negative: Yes Constitutional: Positive: Fever, Chills, Fatigue Skin: Positive: Negative Eyes: Positive: Negative ENT: Positive: Negative Respiratory: Positive: Cough Cardiovascular: Positive: Negative Gastrointestinal: Positive: Negative Genitourinary: Positive: Negative Motor: Positive: Negative Neurovascular: Positive: Negative Musculoskeletal: Positive: Negative Neurological/Mental Status: Positive: Negative Psychological: Positive: Negative Is Patient Immunocompromised?: No Physical Exam Triage Information Reviewed: Yes Appearance: Well-Appearing, No Pain Distress, Well-Nourished Vital Signs: Initial Vital Signs Temp 97.9 F 12/28/19 13:02 Pulse 110 12/28/19 13:02 Resp 16 12/28/19 13:02 BP 135/70 12/28/19 13:02 Pulse Ox 99 12/28/19 13:02 Vital Signs Reviewed: Yes Eye Exam: Normal Eyes: Positive: Conjunctiva Clear ENT Exam: Normal ENT: Positive: Normal ENT inspection, Hearing grossly normal, Pharynx normal. Negative: Trismus, Muffled voice, Hoarse voice Dental Exam: Normal Neck exam: Normal Neck: Positive: Supple, Nontender Respiratory Exam: Normal Respiratory: Positive: Chest non-tender, Lungs clear, Normal breath sounds, No respiratory distress, No accessory muscle use Cardiovascular Exam: Normal Cardiovascular: Positive: RRR, No Murmur, Pulses Normal, Brisk Capillary Refill Musculoskeletal Exam: Normal Musculoskeletal: Positive: Strength Intact, ROM Intact, No Edema Neurological Exam: Normal Neurological: Positive: Alert, Muscle Tone Normal Psychological Exam: Normal Skin Exam: Normal Diagnostics - Laboratory Lab Results: influenza A + (was not positive last week when he was checked) - Radiology No standard instances Radiology Interpretation Completed By: Radiologist - no evidence of PNA Respiratory Course/Dx - Course Course Of Treatment: discussed options of retreating with Tamiflu also adding an A?B---patient wishes to take both---will also send patient home with a spacer for MDI--- patient has appointment with pcp in 3 days will recheck sx then and go to emergency department if symptoms worsen in any way - Differential Dx/Diagnosis Provider Diagnosis: Influenza A, Bronchospasm Discharge ED - Sign-Out/Discharge Documenting (check all that apply): Patient Departure All imaging exams completed and their final reports reviewed: Yes - Discharge Plan Condition: Stable Disposition: HOME Prescriptions: Cefdinir [Cefdinir 300 MG CAP] 300 mg PO BID #20 cap Oseltamivir CAP* [Tamiflu CAP*] 75 mg PO BID #10 cap Patient Education Materials: Influenza (ED), Bronchospasm (ED), How to Use a Metered-Dose Inhaler and a Spacer (ED) Referrals: Virginia Santiago MD [Primary Care Provider] - 3 Days - Billing Disposition and Condition Condition: STABLE Disposition: Home
[2019-12-28 13:52] LABS: Influenza A Molecular POSITIVE (Negative)
== END 2019-12-28 14:44 | disposition home or self-care (01) ==
LOC: UCEAST 12:53
DX: J10.1 Influenza due to other identified influenza virus with other respiratory manifestations (principal); J98.01 Acute bronchospasm; I10 Essential (primary) hypertension; J45.909 Unspecified asthma, uncomplicated; Z87.891 Personal history of nicotine dependence; Z91.09 Other allergy status, other than to drugs and biological substances; Z88.8 Allergy status to other drugs, medicaments and biological substances; Z88.2 Allergy status to sulfonamides; Z91.040 Latex allergy status; Z88.1 Allergy status to other antibiotic agents; Z79.899 Other long term (current) drug therapy
CPT/HCPCS: 71046; 99212; G0463